=== PATIENT | female | born 1955 | race Caucasian/White ===

== ENCOUNTER 2019-03-26 10:26 | Inpatient (IN) ==
--- NOTE | 2019-03-26 10:33 | Emergency Department Note ---
Disposition Clinical Impression: Falls, Generalized weakness, Back pain Disposition: Admitted As Inpatient Condition: Fair General Adult HPI - General Stated complaint: Fall Time Seen by Provider: 03/26/19 10:29 - Related Data Home Medications Medication Instructions Recorded Confirmed Acyclovir [Zovirax] 400 mg PO BID 02/21/18 03/26/19 Buspirone HCl [Buspar] 20 mg PO BID 02/21/18 03/26/19 Docusate Sodium [Dok] 100 mg PO BID PRN 02/21/18 03/26/19 Omeprazole [PriLOSEC] 40 mg PO DAILY 02/21/18 03/26/19 Sertraline [Zoloft] 200 mg PO DAILY 02/21/18 03/26/19 Simvastatin [Zocor] 40 mg PO HS 02/21/18 03/26/19 Apixaban [Eliquis] 5 mg PO BID 08/28/18 03/26/19 Atenolol [Tenormin] 25 mg PO DAILY 02/01/19 03/26/19 Spironolactone [Aldactone] 25 mg PO QAM 02/01/19 03/26/19 Liraglutide [Victoza 2-Primo] 1.2 mg SQ DAILY 03/26/19 03/26/19 Lisinopril [Zestril] 5 mg PO DAILY 03/26/19 03/26/19 Melatonin 10 mg PO HS 03/26/19 03/26/19 Metformin HCl [Glucophage] 1,000 mg PO BIDWM 03/26/19 03/26/19 Timolol Maleate 1 drop BOTH EYES DAILY 03/26/19 03/26/19 Tizanidine HCl 2 mg PO TID PRN 03/26/19 03/26/19 Trospium Chloride 20 mg PO BID 03/26/19 03/26/19 Allergies Allergy/AdvReac Type Severity Reaction Status Date / Time bacitracin Allergy See Verified 03/26/19 14:28 [From Neosporin Comments ([id number])] Neomycin Allergy See Verified 03/26/19 14:28 [From Neosporin Comments ([id number])] polymyxin B Allergy See Verified 03/26/19 14:28 [From Neosporin Comments ([id number])] bandaid Allergy Rash Uncoded 08/28/18 10:07 Past Medical History - Past Medical History Medical history: Reports: arthritis, atrial fibrillation, DVT, diabetes, GERD, glaucoma, hyperlipidemia, hypertension, pulmonary embolus, other Surgical history: Reports: cataract, herniorrhaphy, other Psychiatric history: Reports: anxiety - Social History Smoking Status: Former smoker Smokeless Tobacco Status: No Alcohol use: Reports: none Drug use: Reports: none Course Vital Signs Temperature 98.4 F 03/26/19 10:37 Pulse Rate 74 03/26/19 10:37 Respiratory Rate 16 03/26/19 10:37 Blood Pressure 114/91 03/26/19 10:37 O2 Sat by Pulse Oximetry 98 03/26/19 10:37 Temperature 98.2 F 03/26/19 18:36 Pulse Rate 44 03/26/19 18:36 Respiratory Rate 15 03/26/19 18:36 Blood Pressure 119/73 03/26/19 18:36 O2 Sat by Pulse Oximetry 96 03/26/19 18:36 Oxygen Delivery Oxygen Delivery Room Air Medical Decision Making - Lab Data Result diagrams: 03/26/19 10:46 03/26/19 10:46 Lab Results 03/26/19 03/26/19 03/26/19 Range/Units 10:36 10:46 10:46 WBC 7.5 (4.3-11.1) K/mcL RBC 4.67 (3.82-4.97) M/mcL Hgb 14.2 (11.5-15.4) g/dL Hct 43.3 (35.3-44.9) % MCV 92.7 (83.0-100.0) fL MCH 30.4 (28.0-33.3) pg MCHC 32.8 (31.6-35.5) g/dL RDW 14.2 (11.5-14.5) % Plt Count 180 (140-400) K/mcL MPV 10.5 (9.4-12.4) fL Immature Gran % 0.7 (0-4) % Seg Neutrophils % 72.4 % Lymphocytes % 13.2 % Monocytes % 8.5 % Eosinophils % 4.3 % Basophils % 0.9 % Neutrophils # 5.4 (1.6-8.9) K/mcL Lymphocytes # 1.0 (0.6-4.6) K/mcL Monocytes # 0.6 (0.0-1.3) K/mcL Eosinophils # 0.3 (0.0-0.6) K/mcL Basophils # 0.1 (0.0-0.2) K/mcL PT 14.3 H (9.4-12.1) Seconds INR 1.3 APTT 35.1 (26.0-36.0) Seconds Sodium 139 (136-145) mEq/L Potassium 4.4 (3.5-5.1) mEq/L Chloride 100 (98-107) mEq/L Carbon Dioxide 31 H (23-29) mEq/L BUN 22 (8-23) mg/dL Creatinine 1.03 (0.60-1.20) mg/dL Est GFR ( Amer) > 60 (> 60) Est GFR (Non-Af Amer) 54 L (> 60) BUN/Creatinine Ratio 21 (6-26) Glucose 187 H (70-105) mg/dL Calculated Osmolality 296 (280-300) Calcium 10.3 (8.6-10.3) mg/dL Creatine Kinase 90 (30-223) Units/L Urine Color (Yellow) Urine Clarity (Clear) Urine pH (5.0-8.0) pH Units Ur Specific [place] (1.010-1.025) Urine Protein (Neg-Trace) mg/dL Urine Glucose (UA) (Normal) mg/dL Urine Ketones (Negative) mg/dL Urine Blood (Negative) Urine Nitrite (Negative) Urine Bilirubin (Negative) Urine Urobilinogen (Normal) mg/dL Ur Leukocyte Esterase (Negative) Ur Culture Indicated? (NO) 03/26/19 Range/Units 12:00 WBC (4.3-11.1) K/mcL RBC (3.82-4.97) M/mcL Hgb (11.5-15.4) g/dL Hct (35.3-44.9) % MCV (83.0-100.0) fL MCH (28.0-33.3) pg MCHC (31.6-35.5) g/dL RDW (11.5-14.5) % Plt Count (140-400) K/mcL MPV (9.4-12.4) fL Immature Gran % (0-4) % Seg Neutrophils % % Lymphocytes % % Monocytes % % Eosinophils % % Basophils % % Neutrophils # (1.6-8.9) K/mcL Lymphocytes # (0.6-4.6) K/mcL Monocytes # (0.0-1.3) K/mcL Eosinophils # (0.0-0.6) K/mcL Basophils # (0.0-0.2) K/mcL PT (9.4-12.1) Seconds INR APTT (26.0-36.0) Seconds Sodium (136-145) mEq/L Potassium (3.5-5.1) mEq/L Chloride (98-107) mEq/L Carbon Dioxide (23-29) mEq/L BUN (8-23) mg/dL Creatinine (0.60-1.20) mg/dL Est GFR ( Amer) (> 60) Est GFR (Non-Af Amer) (> 60) BUN/Creatinine Ratio (6-26) Glucose (70-105) mg/dL Calculated Osmolality (280-300) Calcium (8.6-10.3) mg/dL Creatine Kinase (30-223) Units/L Urine Color Yellow (Yellow) Urine Clarity Clear (Clear) Urine pH 6.5 (5.0-8.0) pH Units Ur Specific [place] 1.012 (1.010-1.025) Urine Protein Negative (Neg-Trace) mg/dL Urine Glucose (UA) Normal (Normal) mg/dL Urine Ketones Negative (Negative) mg/dL Urine Blood Negative (Negative) Urine Nitrite Negative (Negative) Urine Bilirubin Negative (Negative) Urine Urobilinogen Normal (Normal) mg/dL Ur Leukocyte Esterase Negative (Negative) Ur Culture Indicated? NO (NO) Attestation Statement - Attestation Attestation: I reviewed the residents documentation and agree with the residents assessment and plan of care. I have personally had face to face time with the patient. (Brief History, Brief Exam, and MDM) I personally supervised and was present for the ivy/critical portions of the following procedures completed by the resident: (add procedures performed here). [id number] time provided Patient arrives by EMS from home. She sustained a mechanical fall. She has experienced several recurrent falls over the past 2 days. It was reported by EMS that the patient's family requested placement to an extended care facility for rehabilitation. The patient appears in no acute distress on exam. She does have significant bilateral lower extremity lymphedematous changes to her feet and lower legs
[2019-03-26] MEDS ORDERED: *HR* FentaNYL (PF) 100 MCG/2 ML VIAL IVP ONE (10:37)
[2019-03-26] MEDS ORDERED: 0.9 % Sodium Chloride 500 ML IVC ONE (10:38)
--- NOTE | 2019-03-26 10:40 | Emergency Department Note ---
Disposition Clinical Impression: Generalized weakness Falls Qualifiers: Encounter type: initial encounter Qualified Code(s): W19.XXXA - Unspecified fall, initial encounter Back pain Qualifiers: Back pain location: low back pain Chronicity: unspecified Back pain laterality: unspecified Sciatica laterality: sciatica laterality unspecified Disposition: Admitted As Inpatient Condition: Fair Time of Disposition: 12:40 General Adult HPI - General Chief complaint: ED Weakness Stated complaint: Fall Time Seen by Provider: 03/26/19 10:29 Source: patient, EMS Mode of arrival: EMS Limitations: no limitations Nursing Notes Reviewed: Yes Vital Signs Reviewed: Yes - History of Present Illness HPI Narrative: 63-year-old female with a history of diabetes, hypertension, on Xarelto for bloo d clots present for evaluation of generalized weakness and recurrent falls. Patient was seen and evaluated yesterday. Patient states she has had multiple falls in the past 24 hours. Notes to have fallen 4 times. States she did hit her head last night with no LOC. States that her legs simply give out. Patient states that she has been on the ground for approximately 30 minutes and not able to get up on the falls. Denies any prodromal chest pain or shortness of breath. No abdominal pain. Patient's primarily complaining of low back pain as well as neck pain. Patient denies any difficulty breathing or fevers. Does live at home with the who has cancer. Families requesting to have the patient placed for rehabilitation - Related Data Home Medications Medication Instructions Recorded Confirmed Acyclovir [Zovirax] 400 mg PO BID 02/21/18 02/08/19 Buspirone HCl [Buspar] 20 mg PO BID 02/21/18 02/08/19 Cholecalciferol (Vitamin D3) 5,000 unit PO DAILY 02/21/18 02/08/19 [Vitamin D] Docusate Sodium [Dok] 100 mg PO BID PRN 02/21/18 02/08/19 Ibuprofen [Motrin] 600 mg PO BID PRN 02/21/18 02/08/19 Liraglutide [Victoza 3-Primo] 1.2 mg SQ DAILY 02/21/18 02/08/19 Lisinopril [Zestril] 10 mg PO DAILY 02/21/18 02/08/19 Melatonin [Melatin] 6 mg PO HS PRN 02/21/18 02/08/19 Omeprazole [PriLOSEC] 40 mg PO DAILY 02/21/18 02/08/19 Sertraline [Zoloft] 200 mg PO DAILY 02/21/18 02/08/19 Simvastatin [Zocor] 40 mg PO HS 02/21/18 02/08/19 Timolol Maleate 0.5% 1 drop OP DAILY 02/21/18 02/08/19 metFORMIN [Glucophage] 1,000 mg PO BIDWM 02/21/18 02/08/19 traZODone [TraZODone] 50 mg PO HS 02/21/18 02/08/19 Apixaban [Eliquis] 5 mg PO BID 08/28/18 02/08/19 Atenolol [Tenormin] 25 mg PO DAILY 02/01/19 02/08/19 Spironolactone [Aldactone] 25 mg PO DAILY 02/01/19 02/08/19 Allergies Allergy/AdvReac Type Severity Reaction Status Date / Time bacitracin Allergy See Verified 08/28/18 10:07 [From Neosporin Comments ([id number])] Neomycin Allergy See Verified 08/28/18 10:07 [From Neosporin Comments ([id number])] polymyxin B Allergy See Verified 08/28/18 10:07 [From Neosporin Comments ([id number])] bandaid Allergy Rash Uncoded 08/28/18 10:07 All systems ED: reviewed and negative except as stated. Constitutional: Denies: fever Cardiovascular: Denies: chest pain Respiratory: Denies: cough, dyspnea Gastrointestinal: Denies: abdominal pain, nausea, vomiting Past Medical History - Past Medical History Source: patient Medical history: Reports: arthritis, atrial fibrillation, DVT, diabetes, GERD, glaucoma, hyperlipidemia, hypertension, pulmonary embolus, other Surgical history: Reports: cataract, herniorrhaphy, other Psychiatric history: Reports: anxiety - Social History Smoking Status: Former smoker Smokeless Tobacco Status: No Alcohol use: Reports: none Drug use: Reports: none Physical Exam - General Limitations: no limitations General appearance: alert, in no apparent distress - Head Head exam: atraumatic, normocephalic, normal inspection - Eye Eye exam: Present: normal appearance, PERRL, EOMI - ENT ENT exam: normal exam - Neck Neck exam: Present: normal inspection - Chest Chest inspection: Present: normal inspection - Respiratory Respiratory exam: Present: normal lung sounds bilaterally. Absent: respiratory distress - Cardiovascular Cardiovascular exam: Present: regular rate, normal rhythm. Absent: normal heart sounds - Abdominal Exam Abdominal exam: Present: soft - Extremities Exam Extremities exam: Present: normal inspection, pedal edema (1+) - Back Exam Back exam: Present: normal inspection, tenderness (lower lumbar midline) - Neurological Exam Neurological exam: Present: alert, oriented X3, CN II-XII intact - Expanded Neurological Exam Patient oriented to: Present: person, place, time Speech: Present: fluid speech Cranial nerves: EOM function (II, III, IV, ): Normal, facial sensation (V): Normal, facial palsy (VII): Normal, spinal accessory function (XI): Normal, tongue deviation (XII): Normal Motor strength - LUE: 5/5 Motor strength - RUE: 5/5 Motor strength - LLE: 5/5 Motor strength - RLE: 5/5 Coma Scale Eye Opening: Spontaneous Coma Scale Motor Response: Obeys Commands Coma Scale Verbal Response: Oriented Coma Scale Total: 15 - Skin Skin exam: Present: warm, dry, intact, normal color Course Course Narrative: Patient's records reviewed. Patient was recently seen yesterday and had CT of the head and cervical spine as well as basic labs. Patient did have some mild [place] I. Patient will get repeat labs as well as repeat imaging given the history of the said fall on Xarelto. Patient also get imaging of her lumbar spine. Will see the social media content manager regarding appropriate therapy and planning. If the patient cannot be placed from the ED the patient will likely require admission for generalized weakness recurrent falls. - Reevaluation(s) Reevaluation #1: Patient seen and agrees with current plan of care. Time: 12:52 - Consultations Consultation #1: Social work did meet with the patient and patient will likely need admission for placement. Time: 10:54 Vital Signs Temperature 98.4 F 03/26/19 10:37 Pulse Rate 74 03/26/19 10:37 Respiratory Rate 16 03/26/19 10:37 Blood Pressure 114/91 03/26/19 10:37 O2 Sat by Pulse Oximetry 98 03/26/19 10:37 Temperature 98.4 F 03/26/19 10:41 Pulse Rate 80 03/26/19 11:44 Respiratory Rate 14 03/26/19 11:44 Blood Pressure 108/67 03/26/19 11:44 O2 Sat by Pulse Oximetry 95 03/26/19 11:44 Oxygen Delivery Oxygen Delivery Room Air Medical Decision Making - MDM Narrative Medical decision making narrative: Patient presents for evaluation of recurrent falls. Patient had imaging shows no acute fracture. Low suspicion or concerns for occult fracture. Patient is appropriate for admission PT OT and social discharge planning. electronic instrument trades worker did meet with the patient in the ED and recommends admission. - Lab Data Lab results reviewed: Yes I reviewed the patient's lab results. Result diagrams: 03/26/19 10:46 03/26/19 10:46 Lab Results 03/26/19 03/26/19 03/26/19 Range/Units 10:36 10:46 10:46 WBC 7.5 (4.3-11.1) K/mcL RBC 4.67 (3.82-4.97) M/mcL Hgb 14.2 (11.5-15.4) g/dL Hct 43.3 (35.3-44.9) % MCV 92.7 (83.0-100.0) fL MCH 30.4 (28.0-33.3) pg MCHC 32.8 (31.6-35.5) g/dL RDW 14.2 (11.5-14.5) % Plt Count 180 (140-400) K/mcL MPV 10.5 (9.4-12.4) fL Immature Gran % 0.7 (0-4) % Seg Neutrophils % 72.4 % Lymphocytes % 13.2 % Monocytes % 8.5 % Eosinophils % 4.3 % Basophils % 0.9 % Neutrophils # 5.4 (1.6-8.9) K/mcL Lymphocytes # 1.0 (0.6-4.6) K/mcL Monocytes # 0.6 (0.0-1.3) K/mcL Eosinophils # 0.3 (0.0-0.6) K/mcL Basophils # 0.1 (0.0-0.2) K/mcL PT 14.3 H (9.4-12.1) Seconds INR 1.3 APTT 35.1 (26.0-36.0) Seconds Sodium 139 (136-145) mEq/L Potassium 4.4 (3.5-5.1) mEq/L Chloride 100 (98-107) mEq/L Carbon Dioxide 31 H (23-29) mEq/L BUN 22 (8-23) mg/dL Creatinine 1.03 (0.60-1.20) mg/dL Est GFR ( Amer) > 60 (> 60) Est GFR (Non-Af Amer) 54 L (> 60) BUN/Creatinine Ratio 21 (6-26) Glucose 187 H (70-105) mg/dL Calculated Osmolality 296 (280-300) Calcium 10.3 (8.6-10.3) mg/dL Creatine Kinase 90 (30-223) Units/L Urine Color (Yellow) Urine Clarity (Clear) Urine pH (5.0-8.0) pH Units Ur Specific [place] (1.010-1.025) Urine Protein (Neg-Trace) mg/dL Urine Glucose (UA) (Normal) mg/dL Urine Ketones (Negative) mg/dL Urine Blood (Negative) Urine Nitrite (Negative) Urine Bilirubin (Negative) Urine Urobilinogen (Normal) mg/dL Ur Leukocyte Esterase (Negative) Ur Culture Indicated? (NO) 03/26/19 Range/Units 12:00 WBC (4.3-11.1) K/mcL RBC (3.82-4.97) M/mcL Hgb (11.5-15.4) g/dL Hct (35.3-44.9) % MCV (83.0-100.0) fL MCH (28.0-33.3) pg MCHC (31.6-35.5) g/dL RDW (11.5-14.5) % Plt Count (140-400) K/mcL MPV (9.4-12.4) fL Immature Gran % (0-4) % Seg Neutrophils % % Lymphocytes % % Monocytes % % Eosinophils % % Basophils % % Neutrophils # (1.6-8.9) K/mcL Lymphocytes # (0.6-4.6) K/mcL Monocytes # (0.0-1.3) K/mcL Eosinophils # (0.0-0.6) K/mcL Basophils # (0.0-0.2) K/mcL PT (9.4-12.1) Seconds INR APTT (26.0-36.0) Seconds Sodium (136-145) mEq/L Potassium (3.5-5.1) mEq/L Chloride (98-107) mEq/L Carbon Dioxide (23-29) mEq/L BUN (8-23) mg/dL Creatinine (0.60-1.20) mg/dL Est GFR ( Amer) (> 60) Est GFR (Non-Af Amer) (> 60) BUN/Creatinine Ratio (6-26) Glucose (70-105) mg/dL Calculated Osmolality (280-300) Calcium (8.6-10.3) mg/dL Creatine Kinase (30-223) Units/L Urine Color Yellow (Yellow) Urine Clarity Clear (Clear) Urine pH 6.5 (5.0-8.0) pH Units Ur Specific [place] 1.012 (1.010-1.025) Urine Protein Negative (Neg-Trace) mg/dL Urine Glucose (UA) Normal (Normal) mg/dL Urine Ketones Negative (Negative) mg/dL Urine Blood Negative (Negative) Urine Nitrite Negative (Negative) Urine Bilirubin Negative (Negative) Urine Urobilinogen Normal (Normal) mg/dL Ur Leukocyte Esterase Negative (Negative) Ur Culture Indicated? NO (NO) - Radiology Data Radiology results reviewed: Yes I reviewed the patient's radiology results. Chest X-Ray 03/26/19 10:36 IMPRESSION: No acute cardiopulmonary disease D/ / Junior Contreras MD / Junior Contreras MD Interpreting Provider: Junior Contreras MD Cervical Spine CT 03/26/19 10:37 IMPRESSION: 1. No acute fracture or subluxation of the cervical spine. 2. Mild multilevel cervical degenerative disc disease, as detailed above. D/ / 03/26/2019 11:43:34 Junior Doe MD / bcarter Interpreting Provider: Junior Doe MD Head CT 03/26/19 10:37 IMPRESSION: 1. No acute intracranial abnormality. 2. Mild chronic small vessel ischemic changes. D/ / Junior Contreras MD / Junior Contreras MD Interpreting Provider: Junior Contreras MD Lumbar Spine CT 03/26/19 10:37 IMPRESSION: 1. No acute findings in the lumbar spine. 2. Probably mild to moderate lumbar spine degenerative changes with severe involvement at L5/S1. 3. Severe right neural foraminal narrowing at L5/S1 with associated stenosis of the right lateral recess and mild to moderate spinal canal stenosis at that level. Consider MRI. 4. Increased size of a 5.8 cm exophytic cystic lesion arising from the the right kidney, containing what appears to be a thickened partial septation. Recommend further evaluation with renal protocol abdomen MRI (preferred) or CT on a nonemergent basis. D/ / Raoul Saucedo MD / Raoul Saucedo MD Interpreting Provider: Raoul Saucedo MD - EKG Data EKG #1 EKG attestation: Yes I reviewed and interpreted this EKG. EKG shows normal: sinus rhythm Rate: normal Rhythm: NSR [place]/QRS: normal T wave inversions noted in: v1 Interpretation: no acute changes, nonspecific ST-T wave changes S.B.ARosendoRRosendo - S.B.ATonie Situation: Demographics Background: Presenting Complaint Assessment: Vital Signs, Course and respsone to treatment, Patient/Family Expectation Recommendation: Barrier(s) to disposition, Recommendation based on pending studies, treatments, or consults S.B.A.RRosendo Report Given to: Hospitalist Felix Repor Time: 12:39
[2019-03-26 11:05] LABS: Basophils # 0.1 K/mcL (0.0-0.2); Basophils % 0.9 %; Eosinophils # 0.3 K/mcL (0.0-0.6); Eosinophils % 4.3 %; Hematocrit 43.3 % (35.3-44.9); Hemoglobin 14.2 g/dL (11.5-15.4); Immature Granulocytes % 0.7 % (0-4); Lymphocytes % 13.2 %; Mean Corpuscular HGB Conc 32.8 g/dL (31.6-35.5); Mean Corpuscular Hemoglobin 30.4 pg (28.0-33.3); Mean Corpuscular Volume 92.7 fL (83.0-100.0); Mean Platelet Volume 10.5 fL (9.4-12.4); Monocytes # 0.6 K/mcL (0.0-1.3); Monocytes % 8.5 %; Neutrophils # 5.4 K/mcL (1.6-8.9); Platelet Count 180 K/mcL (140-400); Red Blood Count 4.67 M/mcL (3.82-4.97); Red Cell Distribution Width 14.2 % (11.5-14.5); Segmented Neutrophils % 72.4 %
[2019-03-26 11:23] LABS: BUN/Creatinine Ratio 21 (6-26); Blood Urea Nitrogen 22 mg/dL (8-23); Calcium 10.3 mg/dL (8.6-10.3); Carbon Dioxide 31 mEq/L (23-29); Chloride 100 mEq/L (98-107); Creatine Kinase 90 Units/L (30-223); Glucose 187 mg/dL (70-105); Osmolality,Calculated 296 (280-300); Potassium 4.4 mEq/L (3.5-5.1); Sodium 139 mEq/L (136-145); eGFR For Non-African Americans 54 (> 60)
[2019-03-26 11:24] LABS: INR 1.3; Prothrombin Time 14.3 Seconds (9.4-12.1)
[2019-03-26 11:27] LABS: Activated Partial Thrombo Time 35.1 Seconds (26.0-36.0)
[2019-03-26 12:15] LABS: Bilirubin,Urine Negative (Negative); Blood,Urine Negative (Negative); Clarity,Urine Clear (Clear); Color,Urine Yellow (Yellow); Glucose,Urine (UA) Normal (Normal); Ketones,Urine Negative (Negative); Leukocyte Esterase,Urine Negative (Negative); Nitrite,Urine Negative (Negative); PH,Urine 6.5 pH Units (5.0-8.0); Protein,Urine Negative (Neg-Trace); Specific Gravity,Urine 1.012 (1.010-1.025); Urobilinogen,Urine Normal (Normal)
--- NOTE | 2019-03-26 14:57 | Internal Med History&Physical ---
Date of Encounter: 03/26/19 Time of Encounter: 14:57 Internal Medicine - H&P: HPI Chief complaint: Fall History of present illness: 63-year-old female with a history of MS, diabetes, hypertension, on Xarelto for history of Left lower extremity DVT in 1982 Pulmonary embolism in February 2018 who presented for evaluation of generalized weakness and recurrent falls during the last 24 hrs due to her legs giving out on her. The patient stated that she hit her head. The patient denies loss of conscious, chest pain, shortness of breath, dizziness or palpitation . No abdo esperanza pain. The patient is complaining of low back pain as well as neck pain. Imaging studies revealed no significant abnormalities, The patient was admitted for further evaluation and managnts requesting to have the patient placed for rehabilitation Past Med Surg Social Fam HX - Past Medical History Medical history: arthritis, atrial fibrillation, DVT, diabetes, GERD, glaucoma, hyperlipidemia, hypertension, pulmonary embolus, other Additional medical history: mult.sclerosis. sleep apnea with cpap. hx pulm emboli Psychiatric history: anxiety - Past Surgical History Surgical History: cataract, herniorrhaphy, other Additional surgical history: left saph ablation. 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 left knee scope - Social History Smoking Status: Former smoker Smokeless Tobacco Status: No Alcohol use: none Drug use: none - Family History Mother Living Status: Still Living Hx Family Respiratory Disorders: Yes (COPD) Father Living Status: Hx Family Cardiac Disorders: Yes (HTN, Heartache) Internal Medicine - H&P: Meds Acyclovir [Zovirax] 400 mg PO BID 02/21/18 [History] Buspirone HCl [Buspar] 20 mg PO BID 02/21/18 [History] Docusate Sodium [Dok] 100 mg PO BID PRN 02/21/18 [History] Omeprazole [PriLOSEC] 40 mg PO DAILY 02/21/18 [History] Sertraline [Zoloft] 200 mg PO DAILY 02/21/18 [History] Simvastatin [Zocor] 40 mg PO HS 02/21/18 [History] Apixaban [Eliquis] 5 mg PO BID 08/28/18 [History] Atenolol [Tenormin] 25 mg PO DAILY 02/01/19 [History] Spironolactone [Aldactone] 25 mg PO QAM 02/01/19 [History] Liraglutide [Victoza 2-Primo] 1.2 mg SQ DAILY 03/26/19 [History] Lisinopril [Zestril] 5 mg PO DAILY 03/26/19 [History] Melatonin 10 mg PO HS 03/26/19 [History] Metformin HCl [Glucophage] 1,000 mg PO BIDWM 03/26/19 [History] Timolol Maleate 1 drop BOTH EYES DAILY 03/26/19 [History] Tizanidine HCl 2 mg PO TID PRN 03/26/19 [History] Trospium Chloride 20 mg PO BID 03/26/19 [History] Allergy/AdvReac Type Severity Reaction Status Date / Time bacitracin Allergy See Verified 03/26/19 14:28 [From Neosporin Comments ([id number])] Neomycin Allergy See Verified 03/26/19 14:28 [From Neosporin Comments ([id number])] polymyxin B Allergy See Verified 03/26/19 14:28 [From Neosporin Comments ([id number])] bandaid Allergy Rash Uncoded 08/28/18 10:07 All Systems PM: A 10-system review of systems was performed and is negative for pertinent findings except as documented above in the HPI. - Constitutional Constitutional: malaise, weakness, no chills, no fever(s), no night sweats - EENT Eyes: no change in vision, no discharge, no pain, no photophobia Ears: no ear discharge, no ear pain, no tinnitus Nose, mouth and throat: no dysphagia, no nasal discharge, no neck pain, no sore throat - Cardiovascular Cardiovascular ROS IM: no chest pain, no diaphoresis, no dyspnea, no lightheadedness, no palpitations, no syncope - Respiratory Respiratory: no cough, no dyspnea, no wheezing, no excessive phlegm production - Gastrointestinal Gastrointestinal: no abdominal pain, no diarrhea, no hematemesis, no hematochezia, no melena, no nausea, no vomiting - Genitourinary Genitourinary: no change in urinary stream, no dysuria, no flank pain, no hematuria - Musculoskeletal Musculoskeletal ROS IM: back pain, muscle weakness, myalgias, no numbness, no tingling - Integumentary Integumentary IM: no rash, no unusual bruising - Neurological Neurological ROS: no confusion, no convulsions, no focal weakness, no numbness, no tingling, no tremor(s) - Hematologic/Lymphatic Hematologic/Lymphatic: no easy bruising - Constitutional Vitals: Temp Pulse Resp BP Pulse Ox 98.0 F 75 18 129/74 99 03/26/19 14:32 03/26/19 14:32 03/26/19 14:32 03/26/19 14:32 03/26/19 14:32 Exam: As below - Head Head exam: Present: atraumatic, normocephalic - Eye Eye exam: Present: PERRL, conjuntiva pink, sclera anicteric Pupils: Present: PERRL - Neck Neck exam general surgery: Present: supple, trachea midline. Absent: lymphadenopathy - Respiratory Respiratory exam: Present: CTAB. Absent: accessory muscle use, rales, rhonchi, wheezes - Cardiovascular Cardiovascular exam: Present: RRR, +S1, +S2. Absent: diastolic murmur, gallop, rubs, systolic murmur - GI/Abdominal GI/Abdominal exam: Present: normal bowel sounds, soft, no peritoneal signs. Absent: distended, tenderness - Extremities Exam Extremities exam: Present: warm, radial pulses palpable and symmetrical. Absent: calf tenderness, cyanotic, pedal edema - Neurological Exam Neurological exam: Present: CN II-XII intact, oriented X3, no focal deficits. Absent: pronater drift, facial droop, speech deficit - Skin Skin exam: Present: dry, intact Internal Med - H&P Results - Labs CBC & Chem 7: 03/30/19 04:55 03/30/19 04:55 Labs: Short CBC 03/26/19 Range/Units 10:46 WBC 7.5 (4.3-11.1) K/mcL Hgb 14.2 (11.5-15.4) g/dL Hct 43.3 (35.3-44.9) % Plt Count 180 (140-400) K/mcL Neutrophils # 5.4 (1.6-8.9) K/mcL BMP 03/26/19 10:46 Sodium 139 Potassium 4.4 Chloride 100 Carbon Dioxide 31 H BUN 22 Creatinine 1.03 Glucose 187 H Calcium 10.3 Urine 03/26/19 Range/Units 12:00 Urine Color Yellow (Yellow) Urine Clarity Clear (Clear) Urine pH 6.5 (5.0-8.0) pH Units Ur Specific [place] 1.012 (1.010-1.025) Urine Protein Negative (Neg-Trace) mg/dL Urine Glucose (UA) Normal (Normal) mg/dL - Impressions ITS Impressions Chest X-Ray 03/26/19 10:36 IMPRESSION: No acute cardiopulmonary disease D/ / Junior Contreras MD / Junior Contreras MD Interpreting Provider: Junior Contreras MD Cervical Spine CT 03/26/19 10:37 IMPRESSION: 1. No acute fracture or subluxation of the cervical spine. 2. Mild multilevel cervical degenerative disc disease, as detailed above. D/ / 03/26/2019 11:43:34 Junior Doe MD / [facility] Interpreting Provider: Junior Doe MD Head CT 03/26/19 10:37 IMPRESSION: 1. No acute intracranial abnormality. 2. Mild chronic small vessel ischemic changes. D/ / Junior Contreras MD / Junior Contreras MD Interpreting Provider: Junior Contreras MD Lumbar Spine CT 03/26/19 10:37 IMPRESSION: 1. No acute findings in the lumbar spine. 2. Probably mild to moderate lumbar spine degenerative changes with severe involvement at L5/S1. 3. Severe right neural foraminal narrowing at L5/S1 with associated stenosis of the right lateral recess and mild to moderate spinal canal stenosis at that level. Consider MRI. 4. Increased size of a 5.8 cm exophytic cystic lesion arising from the the right kidney, containing what appears to be a thickened partial septation. Recommend further evaluation with renal protocol abdomen MRI (preferred) or CT on a nonemergent basis. D/ / Raoul Saucedo MD / Raoul Saucedo MD Interpreting Provider: Raoul Saucedo MD - Assessment and Plan (1) Falls Current Visit: Yes Status: Acute Assessment and plan: The patient is requesting placement to rehab. The patient has history of Multiple sclerosis. We will consult neuro, PT and OT Qualifiers: Encounter type: subsequent encounter Qualified Code(s): W19.XXXD - Unspecified fall, subsequent encounter (2) Hypertension Current Visit: Yes Status: Acute Assessment and plan: We will cont home meds Qualifiers: Hypertension type: essential hypertension Qualified Code(s): I10 - Essent ial (primary) hypertension (3) Diabetes Current Visit: Yes Status: Acute Assessment and plan: We will cont home meds and start insulin slifding scale with coverage Qualifiers: Diabetes mellitus type: type 2 Diabetes mellitus nursing home insulin use: without technician terminal and repeater use Diabetes mellitus complication status: without co mplication Qualified Code(s): E11.9 - Type 2 diabetes mellitus without co mplications (4) Hyperlipidemia Current Visit: Yes Status: Acute Assessment and plan: We will cont home statin Qualifiers: Hyperlipidemia type: unspecified Qualified Code(s): E78.5 - Hyperlipidemia, unspecified (5) History of deep vein thrombosis (DVT) of lower extremity Current Visit: Yes Status: Acute Assessment and plan: The patient had history of DVT and PE, will cont. anticoagulation with Xarelto - Time Spent With Patient Total time spent is greater than 50% in coordination of care (as documented) at patient's floor/unit and/or counseling patient:
[2019-03-26] MEDS ORDERED: *HR* Metformin 500 MG TABLET PO SCH (17:00)
[2019-03-26] MEDS ORDERED: Naloxone 0.4 MG/ML INJ IVP PRN (17:11)
[2019-03-26] MEDS ORDERED: Acetaminophen 325 MG TABLET PO PRN (17:11)
[2019-03-26] MEDS: 0.9 % Sodium Chloride 1,000 ML IVC SCH (18:16)
[2019-03-26] MEDS ORDERED: *HR* Dextrose 50 % in Water (Syg) 50 ML SYRINGE IVP PRN (18:52)
[2019-03-26] MEDS ORDERED: D5% in Water 1,000 ML IVC PRN (18:52)
[2019-03-26] MEDS ORDERED: Dextrose Gel 15 GM/37.5 ML TUBE PO PRN ×2 (18:52)
[2019-03-26] MEDS: Acyclovir 200 MG CAPSULE PO SCH (19:42)
[2019-03-26] MEDS: Apixaban 5 MG TABLET PO SCH (19:42)
[2019-03-26] MEDS: BUSPIRONE HCL 10 MG TABLET PO SCH (19:43)
[2019-03-26] MEDS: Melatonin 3 MG TABLET PO SCH (19:43)
[2019-03-26 20:08] LABS: Estimated Average Glucose 143 mg/dl; Hemoglobin A1C 6.6 %
[2019-03-26] MEDS: Insulin LISPRO 300 UNITS/3 ML VIAL SQ SCH (22:55)
[2019-03-27 03:48] LABS: Basophils # 0.1 K/mcL (0.0-0.2); Basophils % 1.1 %; Eosinophils # 0.3 K/mcL (0.0-0.6); Eosinophils % 3.9 %; Hematocrit 38.2 % (35.3-44.9); Hemoglobin 12.7 g/dL (11.5-15.4); Immature Granulocytes % 0.4 % (0-4); Lymphocytes # 1.8 K/mcL (0.6-4.6); Lymphocytes % 22.2 %; Mean Corpuscular HGB Conc 33.2 g/dL (31.6-35.5); Mean Corpuscular Hemoglobin 30.7 pg (28.0-33.3); Mean Corpuscular Volume 92.3 fL (83.0-100.0); Mean Platelet Volume 10.7 fL (9.4-12.4); Monocytes # 0.7 K/mcL (0.0-1.3); Monocytes % 8.7 %; Neutrophils # 5.1 K/mcL (1.6-8.9); Platelet Count 165 K/mcL (140-400); Red Blood Count 4.14 M/mcL (3.82-4.97); Red Cell Distribution Width 14.3 % (11.5-14.5); Segmented Neutrophils % 63.7 %
[2019-03-27 03:58] LABS: INR 1.4; Prothrombin Time 15.9 Seconds (9.4-12.1)
[2019-03-27 04:01] LABS: Activated Partial Thrombo Time 35.5 Seconds (26.0-36.0)
[2019-03-27 04:05] LABS: Alanine Aminotransferase 22 Units/L (7-52); Albumin 3.8 g/dL (3.5-5.7); Albumin/Globulin Ratio 1.5 (1.1-2.2); Alkaline Phosphatase 52 Units/L (34-104); Aspartate Amino Transferase 19 Units/L (13-39); BUN/Creatinine Ratio 18 (6-26); Bilirubin,Total 0.6 mg/dL (0.3-1.0); Blood Urea Nitrogen 19 mg/dL (8-23); Calcium 9.4 mg/dL (8.6-10.3); Carbon Dioxide 25 mEq/L (23-29); Chloride 105 mEq/L (98-107); Chol/HDL Ratio 3.6 (0-4.9); Cholesterol 150 mg/dL (< 200); Globulin 2.5 g/dL (2.4-3.5); Glucose 151 mg/dL (70-105); HDL Cholesterol 42 mg/dL (40-59); LDL Cholesterol,Calculated 77 mg/dL (0-99); Magnesium 1.4 mg/dL (1.6-2.6); Osmolality,Calculated 293 (280-300); Phosphorous 3.7 mg/dL (2.7-4.5); Potassium 4.2 mEq/L (3.5-5.1); Sodium 139 mEq/L (136-145); Total Protein 6.3 g/dL (6.4-8.9); Triglycerides 157 mg/dL (< 150); eGFR For Non-African Americans 52 (> 60)
[2019-03-27] MEDS: 0.9 % Sodium Chloride 1,000 ML IVC SCH (04:46)
[2019-03-27] MEDS: traMADol 50 MG TABLET PO PRN ×2 (06:06→17:34)
--- NOTE | 2019-03-27 07:32 | Internal Med Progress Note ---
Hospitalist Progress Note - Encounter Date of Encounter: 03/27/19 Time of Encounter: 07:32 - Exam Vitals: Temp Pulse Resp BP Pulse Ox 98.2 F 91 17 106/56 96 03/27/19 03:57 03/27/19 03:57 03/27/19 03:57 03/27/19 03:57 03/27/19 03:57 Exam: Skin: Free of rash and discoloration. Eyes: Sclera is white. There is no discharge from eyes. ENMT: Oral/pharyngeal mucosa is normal in appearance. There is no discharge from nose or ears. Respiratory: Normal breath sounds with no crackles and wheezes bilaterally. CV: Heart is regular with no gallop or murmur. GI: Abdomen is flat and soft with no palpable mass or visceromegaly. : There is no tenderness in patient's flanks bilaterally. Neuro exam: upper strength equal lower extremity weakness He has normal eye movements. Psychiatric: He has normal affect. His thought process is appropriate to the situation. - Assessment and Plan (1) Falls Current Visit: Yes Status: Acute Assessment and Plan: The patient is requesting placement to rehab. The patient has history of Multiple sclerosis. We will consult neuro, PT and OT CT of lumbar spine does show Severe right neural foraminal narrowing at L5/S1 with associated stenosis of the right lateral recess and mild to moderate spinal canal stenosis at that leve consider MRI (2) Generalized weakness Current Visit: Yes Status: Acute Assessment and Plan: The patient has history of MS, neurology was consulted (3) Hypertension Current Visit: Yes Status: Acute Assessment and Plan: We will cont home meds (4) Diabetes Current Visit: Yes Status: Acute Assessment and Plan: Accu-Cheks before meals at bedtime start insulin slifding scale with coverage hold oral medications for now resume on discharge (5) Hyperlipidemia Current Visit: Yes Status: Acute Assessment and Plan: We will cont home statin (6) History of deep vein thrombosis (DVT) of lower extremity Current Visit: Yes Status: Acute Assessment and Plan: The patient had history of DVT and PE, will cont. anticoagulation with Xarelto - Time Spent with Patient Total time spent is greater than 50% in coordination of care (as documented) at patient's floor/unit and/or counseling patient: Internal Medicine: Result - Labs CBC & Chem 7: 03/27/19 03:27 03/27/19 03:27 Labs: Short CBC 03/26/19 03/27/19 Range/Units 10:46 03:27 WBC 7.5 8.0 (4.3-11.1) K/mcL Hgb 14.2 12.7 D (11.5-15.4) g/dL Hct 43.3 38.2 (35.3-44.9) % Plt Count 180 165 (140-400) K/mcL Neutrophils # 5.4 5.1 (1.6-8.9) K/mcL BMP 03/26/19 03/27/19 10:46 03:27 Sodium 139 139 Potassium 4.4 4.2 Chloride 100 105 Carbon Dioxide 31 H 25 BUN 22 19 Creatinine 1.03 1.07 Glucose 187 H 151 H Calcium 10.3 9.4 Liver Function 03/27/19 Range/Units 03:27 Total Bilirubin 0.6 (0.3-1.0) mg/dL AST 19 (13-39) Units/L ALT 22 (7-52) Units/L Alkaline Phosphatase 52 (34-104) Units/L Albumin 3.8 (3.5-5.7) g/dL Urine 03/26/19 Range/Units 12:00 Urine Color Yellow (Yellow) Urine Clarity Clear (Clear) Urine pH 6.5 (5.0-8.0) pH Units Ur Specific [place] 1.012 (1.010-1.025) Urine Protein Negative (Neg-Trace) mg/dL Urine Glucose (UA) Normal (Normal) mg/dL - ABG Interpretation ABG results: PT/INR, D-dimer PT 15.9 Seconds (9.4-12.1) H 03/27/19 03:27 - Impressions Impressions Chest X-Ray 03/26/19 10:36 IMPRESSION: No acute cardiopulmonary disease D/ / Junior Contreras MD / Junior Contreras MD Interpreting Provider: Junior Contreras MD Cervical Spine CT 03/26/19 10:37 IMPRESSION: 1. No acute fracture or subluxation of the cervical spine. 2. Mild multilevel cervical degenerative disc disease, as detailed above. D/ / 03/26/2019 11:43:34 [facility] Doe MD / [facility] Interpreting Provider: Junior Doe MD Head CT 03/26/19 10:37 IMPRESSION: 1. No acute intracranial abnormality. 2. Mild chronic small vessel ischemic changes. D/ / Junior Contreras MD / Junior Contreras MD Interpreting Provider: Junior Contreras MD Lumbar Spine CT 03/26/19 10:37 IMPRESSION: 1. No acute findings in the lumbar spine. 2. Probably mild to moderate lumbar spine degenerative changes with severe involvement at L5/S1. 3. Severe right neural foraminal narrowing at L5/S1 with associated stenosis of the right lateral recess and mild to moderate spinal canal stenosis at that level. Consider MRI. 4. Increased size of a 5.8 cm exophytic cystic lesion arising from the the right kidney, containing what appears to be a thickened partial septation. Recommend further evaluation with renal protocol abdomen MRI (preferred) or CT on a nonemergent basis. D/ / Raoul Saucedo MD / Raoul Saucedo MD Interpreting Provider: Raoul Saucedo MD Consult Discharge Plan - Plan Referrals: Alena Britt, BLEACHER OPERATOR [Primary Care Provider] - (1) Falls Qualifiers: Encounter type: initial encounter Qualified Code(s): W19.XXXA - Unspecified fall, initial encounter (4) Diabetes Qualifiers: Diabetes mellitus type: type 2 Diabetes mellitus long-term insulin use: without dedicated intermodal truck driver use Diabetes mellitus complication status: without com plication Qualified Code(s): E11.9 - Type 2 diabetes mellitus without comp lications (5) Hyperlipidemia Qualifiers: Hyperlipidemia type: unspecified Qualified Code(s): E78.5 - Hyperlipidemia, unspecified
[2019-03-27] MEDS: Acyclovir 200 MG CAPSULE PO SCH ×2 (09:05→20:01)
[2019-03-27] MEDS: Insulin LISPRO 300 UNITS/3 ML VIAL SQ SCH ×4 (09:06→22:27)
[2019-03-27] MEDS: Spironolactone 25 MG TABLET PO SCH (09:06)
[2019-03-27] MEDS: BUSPIRONE HCL 10 MG TABLET PO SCH ×2 (09:06→20:02)
[2019-03-27] MEDS: Apixaban 5 MG TABLET PO SCH ×2 (09:07→20:02)
[2019-03-27] MEDS: (Liraglutide [Victoza 2-Pak] 1.2 MG) SQ SCH (09:07)
[2019-03-27] MEDS: tiZANidine 4 MG TABLET PO PRN (09:11)
--- NOTE | 2019-03-27 12:21 | Neurology - Consult Note ---
Date of Encounter: 03/27/19 Time of Encounter: 11:17 Assessment and Plan (1) History of multiple sclerosis Current Visit: Yes Status: Acute This patient who apparently had a history of multiple sclerosis since 1993, with questionable flareup about 2 years ago when she was admitted at [facility] and had been treated with IV steroids now admitted with generalized weakness fatigue as well as frequent falls and difficulty with a gait and balance that she been having it for some time.. Concerning her symptoms history and exam findings on balance problem seemed to be multifactorial certainly MS could be playing a significant role but at the same time she did have a significant degenerative changes and stenosis in her lumbar spine along with neuropathy from her diabetes is likely all contributing to these frequent falls and losing balance she also has significant swelling and decreased fine movement in the lower extremities certainly can make it difficult to keep up the balance. At this time we do not know the extent of her MS especially when she did not have any recent imaging studies in fact he do not even know what kind of MS she had an in fact how confirmed is this diagnosis is. Regardless suggest getting an MRI of the brain with and without contrast along with MRI of the cervical spine to look for any demyelinating lesion if there is some demyelination perhaps she may need MRI of the thoracic spine later as well. At the same time she would also need MRI lumbar spine as recommended by radiology due to significant stenosis in the L5-S1 area. In the meantime suggest to continue on current treatment options further recommendation will depend on the result of MRI of the brain cervical spine as well as lumbar spine. As if there is any active lesions she probably need IV steroids. She would likely benefit from short-term rehabilitation as she remain at high risk for the fall (2) Falls Current Visit: Yes Status: Acute Qualifiers: Encounter type: initial encounter Qualified Code(s): W19.XXXA - Unspecified fall, initial encounter (3) Generalized weakness Current Visit: Yes Status: Acute History of Present Illness HPI: Ms. Ayoub is a 63 year old female with history of MS,( diagnosed in 1993, not following with neuro, not on any immune modulating meds) as well as with diabetes, hypertension, on Xarelto for history of Left lower extremity DVT in 1982, Pulmonary embolism in February 2018 who admitted with Generalized weakness and recurrent falls during the last 24 hrs due to her legs giving out on her. The patient stated that she hit her head. The patient denies loss of conscious, chest pain, shortness of breath, dizziness or palpitation . No abdominal pain. The patient is complaining of low back pain as well as neck pain. Imaging studies revealed no significant abnormalities, The patient was admitted for further evaluation. According to the patient she is been feeling weak all over and also in the lower extremities recently and she is been losing balance because unable to keep up her weight as her legs give out. She denies much back pain with complaining of weakness more on the left than on the right side is also have numbness and paresthesias in both lower extremities a history of diabetes and neuropathy. Patient is a complicated past medical history and is a very poor historian apparently she was diagnosed with MS in 1993 in [facility] at that time she was started on Avonex injection but as they were making her sick she stopped taking it and not been on any immune modulating medication for more than 12 years, according to the patient she has not followed with any neurologist and not been on any other medication but about 1 or 2 years ago she has weakness in the legs and at that time she was admitted at [facility] and was found to have some spots in her spine, and has received IV steroids for MS flareup, after that she was in the rehabilitation for a while but is still did not had any follow-up appointment with [facility] neurologist or any other neurologist. She is not able to give much detail about her diagnosis and the symptoms she had overall according to her she is been stable despite being on any medication for MS Past Med Surg Social Fam HX - Past Medical History Medical history: arthritis, atrial fibrillation, DVT, diabetes, GERD, glaucoma, hyperlipidemia, hypertension, pulmonary embolus, other Additional medical history: mult.sclerosis. sleep apnea with cpap. hx pulm emboli Psychiatric history: anxiety - Past Surgical History Surgical History: cataract, herniorrhaphy, other Additional surgical history: left saph ablation. 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 left knee scope - Social History Smoking Status: Former smoker Smokeless Tobacco Status: No Alcohol use: none Drug use: none - Family History Mother Living Status: Still Living Hx Family Respiratory Disorders: Yes (COPD) Father Living Status: Hx Family Cardiac Disorders: Yes (HTN, Heartache) Medications and Allergies Acyclovir [Zovirax] 400 mg PO BID 02/21/18 [History] Buspirone HCl [Buspar] 20 mg PO BID 02/21/18 [History] Docusate Sodium [Dok] 100 mg PO BID PRN 02/21/18 [History] Omeprazole [PriLOSEC] 40 mg PO DAILY 02/21/18 [History] Sertraline [Zoloft] 200 mg PO DAILY 02/21/18 [History] Simvastatin [Zocor] 40 mg PO HS 02/21/18 [History] Apixaban [Eliquis] 5 mg PO BID 08/28/18 [History] Atenolol [Tenormin] 25 mg PO DAILY 02/01/19 [History] Spironolactone [Aldactone] 25 mg PO QAM 02/01/19 [History] Liraglutide [Victoza 2-Primo] 1.2 mg SQ DAILY 03/26/19 [History] Lisinopril [Zestril] 5 mg PO DAILY 03/26/19 [History] Melatonin 10 mg PO HS 03/26/19 [History] Metformin HCl [Glucophage] 1,000 mg PO BIDWM 03/26/19 [History] Timolol Maleate 1 drop BOTH EYES DAILY 03/26/19 [History] Tizanidine HCl 2 mg PO TID PRN 03/26/19 [History] Trospium Chloride 20 mg PO BID 03/26/19 [History] Allergy/AdvReac Type Severity Reaction Status Date / Time bacitracin Allergy See Verified 03/26/19 14:28 [From Neosporin Comments ([id number])] Neomycin Allergy See Verified 03/26/19 14:28 [From Neosporin Comments ([id number])] polymyxin B Allergy See Verified 03/26/19 14:28 [From Neosporin Comments ([id number])] bandaid Allergy Rash Uncoded 08/28/18 10:07 All Systems: The remainder of the systems were reviewed and are negative Physical Examination - Vital Signs Vital Signs: Initial Vital Signs Temp Pulse Resp BP Pulse Ox 98.4 F 74 16 114/91 98 03/26/19 10:37 03/26/19 10:37 03/26/19 10:37 03/26/19 10:37 03/26/19 10:37 - Exam Exam: GENERAL: Comfortable in no acute distress HEENT: Normal LUNGS: CTA HEART: RRR, S1 S2 Audible, no murmur EXTREMITIES: No Pedal edema. DETAILED NEUROLOGICAL EXAMINATION: MENTAL STATUS: Oriented to person, place, date and situation. Memory: knows the President, Aware of recent events Recent Memory Intact, Attention span is normal Cranial Nerve Examination: CN - II: Visual Acuity, Field of Vision Normal, Fundus examination: No disk edema, Pupils- size shape reaction to light and accommodation: All normal. CN III, IV, : External ocular movements were intact, Pupils were reactive, Nodrooping of the eyelids CN V: Sensation over the face to light touch and pinprick all normal. Corneal reflexes not tested, jaw jerk normal. CN VII: No facial asymmetry, no flattening of nasolabial folds, no difficulty in closing the eyes, no loss of forehead wrinkles, no difficulty in eye-closure, frowning raising eyebrows. CNVIII: No significant hearing loss CN IX, X: Uvula centralized not deviated, Gag reflex: Not tested CN X1: Sternocleidomastoid, trapezius, normal or evidence of any weakness. CN X11: No Dysarthria, no wasting or fibrilation f tongue muscles, no deviation, tongue muscle strength normal. Motor examination: No hypertrophy, tone was normal, power grade 0-5 Upper limbs Proximal- No difficulty in lifting the arms above the head. Distal- No weakness in distal muscles On formal testing 4/4 all over Lower limbs On formal testing 3/3+ all over Coordination: [id number] normal. Target pursuit normal finger tapping normal, Rapid alternating moment of wrist normal Sensory system: Superficial sensations- Touch normal. Pain- Pinprick, Temperature decrease Deep sensation normal, Joint position sense normal. Cortical sensation, Tactile discrimination, localization and extinction all normal. Deep tendon reflexes. Symmetrical bilateral, No evidence of Babinski. No sign of meningeal irritation Gait Examination: Deferred - Constitutional General appearance: comfortable - Neurologic Sensorimotor examination: intact Results - Laboratory Findings CBC and BMP: 03/27/19 03:27 03/27/19 03:27 Abnormal lab findings: Abnormal lab results PT 15.9 Seconds (9.4-12.1) H 03/27/19 03:27 Carbon Dioxide 31 mEq/L (23-29) H 03/26/19 10:46 Est GFR (Non-Af Amer) 52 (> 60) L 03/27/19 03:27 Glucose 151 mg/dL (70-105) H 03/27/19 03:27 POC Glucose 156 mg/dL (70-99) H 03/26/19 14:37 6.6 % (-5.6) H 03/26/19 10:46 Magnesium 1.4 mg/dL (1.6-2.6) L 03/27/19 03:27 6.3 g/dL (6.4-8.9) L 03/27/19 03:27 Triglycerides 157 mg/dL (< 150) H 03/27/19 03:27 VLDL Cholesterol, Calc 31 mg/dL (< 31) H 03/27/19 03:27 - Diagnostic Findings Additional findings: CT scan of the head cervical spine and lumbar spine did not show any acute abnormality but significant degenerative changes noted in CT of the lumbar spine and MRI was recommended Consult Discharge Plan - Plan Referrals: Alena Britt DYNAMITER [Primary Care Provider] -
[2019-03-27] MEDS ORDERED: Gadolinium Contrast Agent (WT Based) IV PRN (12:28)
[2019-03-27] MEDS ORDERED: *HR* LORazepam 2 MG/ML VIAL IVP ONE (14:23)
[2019-03-27 15:44] LABS: Folate 13.2 ng/mL (3.0-16.0)
--- NOTE | 2019-03-27 19:29 | Electrocardiograph Report ---
Danese Netechy Test Date: 2019-03-26 Pat Name: Priti Ayoub Department: EXAM2 Room: 3B21 Gender: F [employer] Mechanic: : 1955 Requested By: Dejon Epstein Order Number: [id number] Reading MD: Jamie Shannon Measurements Intervals [place] Rate: 76 P: 55 [place]: 170 QRS: 7 QRSD: 153 T: 44 QT: 378 QTc: 425 Interpretive Statements Sinus rhythm Nonspecific intraventricular conduction delay Electronically Signed On 03-27-2019 19:27:48 EDT by Jamie Shannon
[2019-03-27] MEDS: Melatonin 3 MG TABLET PO SCH (20:01)
[2019-03-28] MEDS: Spironolactone 25 MG TABLET PO SCH (08:16)
[2019-03-28] MEDS: Apixaban 5 MG TABLET PO SCH ×2 (08:17→21:21)
[2019-03-28] MEDS: Acyclovir 200 MG CAPSULE PO SCH ×2 (08:17→21:21)
[2019-03-28] MEDS: Insulin LISPRO 300 UNITS/3 ML VIAL SQ SCH ×4 (08:17→21:21)
[2019-03-28] MEDS: BUSPIRONE HCL 10 MG TABLET PO SCH ×2 (08:17→21:21)
[2019-03-28] MEDS: (Liraglutide [Victoza 2-Pak] 1.2 MG) SQ SCH (08:36)
[2019-03-28] MEDS ORDERED: Isovue-370 500 ML BOTTLE IVP ONE (10:26)
--- NOTE | 2019-03-28 10:31 | Internal Med Progress Note ---
Hospitalist Progress Note - Encounter Date of Encounter: 03/28/19 Time of Encounter: 10:29 - Subjective Interval History: Seen and examined at bedside. Patient is new to me, information obtained from chart review and patient report. Lying in bed, appears comfortable. Overall says she does not feel like she is significantly improved from arrival. Still with generalized weakness and fatigue. Says she has not been up ambulating but chair yesterday. She is hoping to be discharged to [facility] for further therapy. - Exam Vitals: Temp Pulse Resp BP Pulse Ox 98 F 76 17 117/64 92 03/28/19 07:31 03/28/19 07:31 03/28/19 07:31 03/28/19 07:31 03/28/19 07:31 Exam: General appearance: Present: A&O X 3, pleasant, no acute distress - Head Head exam: Present: atraumatic, normocephalic - Eye Eye exam: Present: PERRL, conjuntiva pink, sclera anicteric Pupils: Present: PERRL - Neck Neck exam general surgery: Present: supple, trachea midline. Absent: lymphadenopathy - Respiratory Respiratory exam: Present: chest wall tenderness, CTAB. Absent: accessory muscle use, rales, rhonchi, wheezes - Cardiovascular Cardiovascular exam: Present: RRR, +S1, +S2. Absent: diastolic murmur, gallop, rubs, systolic murmur - GI/Abdominal GI/Abdominal exam: Present: normal bowel sounds, soft, no peritoneal signs. Absent: distended, tenderness - Extremities Exam Extremities exam: Present: warm, radial pulses palpable and symmetrical. + Nonpitting lower extremity pedal edema Absent: calf tenderness, cyanotic - Neurological Exam Neurological exam: Present: CN II-XII intact, oriented X3, no focal deficits. Absent: pronater drift, facial droop, speech deficit - Skin Skin exam: Present: dry, intact - Assessment and Plan (1) Falls Current Visit: Yes Status: Acute Assessment and Plan: hx MS (diagnosed 1993 and does not follow with neurology). Presented with increasing falls, lower extremity weakness and difficulty ambulating. Head CT nonacute. L-spine CT with significant degenerative changes and stenosis. Lumbar MRI showed grade 1 anterolisthesis of L5 on S1 and moderate to severe narrowing of the right neural foramen with no significant nerve root compression. Evaluated by neurology who suspected multifactorial with severe degenerative changes and stenosis to lumbar spine, neuropathy from diabetes and possible MS. Await further recommendations from neurology. PT/OT consult. Patient would like to be discharged to [facility] if possible. (2) Hypertension Current Visit: Yes Status: Acute Assessment and Plan: per hx. BP soft/borderline at times. Continue home BP medication. Monitor BP and titrate PRN (3) Multiple sclerosis Current Visit: Yes Status: Acute Assessment and Plan: per patient reported history. Unable to verify. Brain MRI without demyelinating lesions. Plan as noted above. Neurology following (4) Renal mass Current Visit: Yes Status: Acute Assessment and Plan: Lumbar spine MRI showed possible right kidney mass and thickening of bladder. Abdomen/pelvis CT pending. (5) Diabetes Current Visit: Yes Status: Acute Assessment and Plan: per hx. holding home oral hypoglycemics. SSI. Monitor blood sugar and titrate PRN (6) Hyperlipidemia Current Visit: Yes Status: Acute Assessment and Plan: per hx. Cont home statin (7) History of deep vein thrombosis (DVT) of lower extremity Current Visit: Yes Status: Acute Assessment and Plan: hx DVT and pulmonary embolism. Cont home eliquis (8) DVT prophylaxis Current Visit: Yes Status: Acute Assessment and Plan: eliquis - Time Spent with Patient Total time spent is greater than 50% in coordination of care (as documented) at patient's floor/unit and/or counseling patient: Internal Medicine: Result - Labs CBC & Chem 7: 03/27/19 03:27 03/27/19 03:27 - ABG Interpretation ABG results: PT/INR, D-dimer PT 15.9 Seconds (9.4-12.1) H 03/27/19 03:27 - Impressions Impressions Cervical Spine CT 03/26/19 10:37 IMPRESSION: 1. No acute fracture or subluxation of the cervical spine. 2. Mild multilevel cervical degenerative disc disease, as detailed above. D/ / 03/26/2019 11:43:34 Junior Doe MD / [facility] Interpreting Provider: Junior Doe MD Cervical Spine MRI 03/27/19 12:28 IMPRESSION: No acute intracranial abnormality identified. No cervical cord abnormality detected. Degenerative changes of the C-and L-spine as detailed above. Possible cystic mass arising from the right kidney and thickening of the bladder dome. Consider dedicated CT of the abdomen and pelvis for further evaluation. D/ / Fredo Robb MD / Fredo Robb MD Interpreting Provider: Fredo Robb MD Head MRI 03/27/19 12:28 IMPRESSION: No acute intracranial abnormality identified. No cervical cord abnormality detected. Degenerative changes of the C-and L-spine as detailed above. Possible cystic mass arising from the right kidney and thickening of the bladder dome. Consider dedicated CT of the abdomen and pelvis for further evaluation. D/ / Fredo Robb MD / Fredo Robb MD Interpreting Provider: Fredo Robb MD Lumbar Spine MRI 03/27/19 12:28 IMPRESSION: No acute intracranial abnormality identified. No cervical cord abnormality detected. Degenerative changes of the C-and L-spine as detailed above. Possible cystic mass arising from the right kidney and thickening of the bladder dome. Consider dedicated CT of the abdomen and pelvis for further evaluation. D/ / Fredo Robb MD / Fredo Robb MD Interpreting Provider: Fredo Robb MD Consult Discharge Plan - Plan Referrals: Alena Britt, TOY ASSEMBLY SUPERVISOR [Primary Care Provider] - (1) Falls Qualifiers: Encounter type: initial encounter Qualified Code(s): W19.XXXA - Unspecified fall, initial encounter (5) Diabetes Qualifiers: Diabetes mellitus type: type 2 Diabetes mellitus correction insulin use: without long haul truck driver use Diabetes mellitus complication status: without complication Qualified Code(s): E11.9 - Type 2 diabetes mellitus without complications (6) Hyperlipidemia Qualifiers: Hyperlipidemia type: unspecified Qualified Code(s): E78.5 - Hyperlipidemia, unspecified
[2019-03-28] MEDS ORDERED: methylPREDNISolone 125 MG/2 ML VIAL IVP ONE (12:32)
--- NOTE | 2019-03-28 12:41 | Neurology Progress Note ---
Date of Encounter: 03/28/19 Time of Encounter: 12:39 Assessment and Plan (1) History of multiple sclerosis Current Visit: Yes Status: Acute MRI of the brain did not show any active lesions, there is no active and has been reported and no evidence of any relapse on clinical exam neither on imaging studies of the brain and cervical spine. She noted to have some a lot of white matter changes which could be related to chronic ischemic disease are at the same time could be related to chronic demyelination At this time do not think that she would need any other treatment for her multiple sclerosis perhaps would benefit from follow-up with neurology as an outpatient MRI of the cervical spine also did not show any lesions in the cervical cord it shows mild degenerative changes (2) Falls Current Visit: Yes Status: Acute This patient difficulty with a gait and balance seems to be multifactorial predominantly dizziness from her back as well as swelling deconditioning in her lower extremities along with the orthopedic issues she is been losing balance and she may continue to fall and continued to be at risk for falls For that reason suggest some short-term rehabilitation for gait and balance training exercises at the same time she may also benefit from medication to decrease the swelling in the lower extremities she also has features of neuropathy that is also making her gait and balance worse Qualifiers: Encounter type: subsequent encounter Qualified Code(s): W19.XXXD - Unspecified fall, subsequent encounter Subjective Interval history: Patient seen as an follow-up she seemed to be stable still having weakness of the lower extremities MRI of the brain did not show any acute abnormalities showed chronic ischemic changes or perhaps demyelination but no active lesions noted in brain neither in the cervical spine Objective - Constitutional Vitals: Temp Pulse Resp BP Pulse Ox 97.9 F 69 15 115/74 92 03/28/19 11:46 03/28/19 11:46 03/28/19 11:46 03/28/19 11:46 03/28/19 11:46 - Neurological Exam Sensorimotor examination: Present: intact Motor examination - right side: 4/5: deltoids, biceps, triceps, wrist flexion, wrist extension, industrial maintenance repairer, hip flexors, tibialis Anterior, quadriceps, toe extension (EHL), plantarflexion Motor examination - left side: 4/5: deltoids, biceps, triceps, wrist flexion, wrist extension, hip flexors, industrial maintenance repairer, quadriceps, tibialis Anterior, toe extension (EHL), plantarflexion Sensation intact: Present: intact Reflex and gait examination: intact Reflexes: Biceps: 1+, Triceps: 1+, Brachioradialis: 1+, Patella: 0, Achilles: 0 Mental Status Examination: Present: awake, alert, oriented to person, oriented to place, oriented to time, follows commands appropriately, answers questions appropriately Cranial nerve examination: Present: PERRL, EOMI, visual roberts intact, no facial asymmetry is present, no dysarthria Cerebellar examination: Present: no dysmetria Results - Laboratory Findings CBC and BMP: 03/27/19 03:27 03/27/19 03:27 Abnormal lab findings: Abnormal lab results PT 15.9 Seconds (9.4-12.1) H 03/27/19 03:27 Carbon Dioxide 31 mEq/L (23-29) H 03/26/19 10:46 Est GFR (Non-Af Amer) 52 (> 60) L 03/27/19 03:27 Glucose 151 mg/dL (70-105) H 03/27/19 03:27 POC Glucose 193 mg/dL (70-99) H 03/27/19 20:28 6.6 % (-5.6) H 03/26/19 10:46 Magnesium 1.4 mg/dL (1.6-2.6) L 03/27/19 03:27 6.3 g/dL (6.4-8.9) L 03/27/19 03:27 Triglycerides 157 mg/dL (< 150) H 03/27/19 03:27 VLDL Cholesterol, Calc 31 mg/dL (< 31) H 03/27/19 03:27 - Diagnostic Findings Additional findings: MRI of the lumbar spine showed At L5-S1 there is uncovering of the disc due to anterolisthesis with a superimposed broad-based right paracentral/foraminal disc protrusion measuring up to 8.8 mm in AP diameter. This results in moderate to severe narrowing of the right neural foramen with contact of the exiting L5 nerve root but no significant nerve root compression. MR/MR head wo/w con, No acute intracranial abnormality identified. No evidence of any active enhancement chronic ischemic changes could be demyelination MRI of the cervical spine, No cervical cord abnormality detected. Mild degenerative changes Consult Discharge Plan - Plan Referrals: Alena Britt, TRANSITION MGR [Primary Care Provider] -
[2019-03-28] MEDS: tiZANidine 4 MG TABLET PO PRN (14:15)
[2019-03-28] MEDS: Melatonin 3 MG TABLET PO SCH (21:21)
[2019-03-29 06:53] LABS: Hematocrit 39.4 % (35.3-44.9); Hemoglobin 12.7 g/dL (11.5-15.4); Mean Corpuscular HGB Conc 32.2 g/dL (31.6-35.5); Mean Corpuscular Hemoglobin 30.2 pg (28.0-33.3); Mean Corpuscular Volume 93.8 fL (83.0-100.0); Mean Platelet Volume 11.9 fL (9.4-12.4); Platelet Count 192 K/mcL (140-400); Red Cell Distribution Width 13.8 % (11.5-14.5)
[2019-03-29 07:58] LABS: Alanine Aminotransferase 16 Units/L (7-52); Albumin 3.9 g/dL (3.5-5.7); Albumin/Globulin Ratio 1.4 (1.1-2.2); Alkaline Phosphatase 56 Units/L (34-104); Aspartate Amino Transferase 12 Units/L (13-39); BUN/Creatinine Ratio 27 (6-26); Bilirubin,Total 0.5 mg/dL (0.3-1.0); Blood Urea Nitrogen 26 mg/dL (8-23); Calcium 9.6 mg/dL (8.6-10.3); Carbon Dioxide 26 mEq/L (23-29); Chloride 104 mEq/L (98-107); Globulin 2.7 g/dL (2.4-3.5); Glucose 216 mg/dL (70-105); Osmolality,Calculated 299 (280-300); Potassium 4.2 mEq/L (3.5-5.1); Sodium 139 mEq/L (136-145); Total Protein 6.6 g/dL (6.4-8.9); eGFR For Non-African Americans 60 (> 60)
[2019-03-29] MEDS: Insulin LISPRO 300 UNITS/3 ML VIAL SQ SCH ×4 (08:16→20:37)
[2019-03-29] MEDS: Acyclovir 200 MG CAPSULE PO SCH ×2 (08:16→20:26)
[2019-03-29] MEDS: BUSPIRONE HCL 10 MG TABLET PO SCH ×2 (08:16→20:26)
[2019-03-29] MEDS: Apixaban 5 MG TABLET PO SCH ×2 (08:16→20:27)
[2019-03-29] MEDS: Spironolactone 25 MG TABLET PO SCH (08:16)
[2019-03-29] MEDS: (Liraglutide [Victoza 2-Pak] 1.2 MG) SQ SCH (08:17)
--- NOTE | 2019-03-29 12:54 | Internal Med Progress Note ---
Hospitalist Progress Note - Encounter Date of Encounter: 03/29/19 Time of Encounter: 09:30 - Subjective Interval History: Ms. Ayoub is a 63-year-old female with a history of MS, diabetes, hypertension, on Xarelto for history of Left lower extremity DVT in 1982 Pulmonary embolism in February 2018 who presented for evaluation of generalized weakness and recurrent falls during the last 24 hrs due to her legs giving out on her. The patient is complaining of low back pain as well as neck pain. Imaging studies revealed no significant abnormalities, The patient was admitted for further evaluation for possible MS flare up. Her Brain MRI did not show any acute intracranial abnormality. Her cervical and lumbar spine MRI did not show any abnormalities other than degenerative changes. Patient was given IV Solu- Medrol x 1 dose yesterday. Today patient stated she is feeling little better today. Still having bilateral lower extremity weakness and lethargic - Exam Vitals: Temp Pulse Resp BP Pulse Ox 98.5 F 75 16 117/69 93 03/29/19 11:00 03/29/19 11:00 03/29/19 11:00 03/29/19 11:03/29/19 11:00 Exam: Gen: Alert, awake, Oriented to time,place and person Chest: Diminished breath sounds B/L, No wheezing, No crackles, No rales Heart: S1S2+ RRR No murmurs Abd: Soft, NT, BS +, No organomegaly Ext: trace edema, pulses are palpable, No calf tenderness Neuro : b/l LE weakness..Strength 3/5 in LE. 4/5 in UEs Skin: No rash. - Assessment and Plan (1) Multiple sclerosis Current Visit: Yes Status: Acute Assessment and Plan: Reviewed her Brain MRI and Cervical / Lumbar spine - no new lesions noticed unclear wether she had any flare up, however she felt better with Iv steroids will talk to Neurology about a short course of steroid therapy Patient does need to stay in the hospital more than 2 midnights due to his complex medical problems. So we will change him to full admission today. I did review my colleague Dr. Clifford's H & P including HPI, PMH, PSH, FH, SH, and ROS no changes noticed (2) Falls Current Visit: Yes Status: Acute Assessment and Plan: Due to severe physical deconditioning could be due to her underline MS and severe DJD PT / OT eval May need short term PT / OT (3) Renal mass Current Visit: Yes Status: Acute Assessment and Plan: Lumbar spine MRI showed possible right kidney mass and thickening of bladder. Abdomen/pelvis CT showed 6 cm complicated right renal cyst. There is also a 3 x 2 cm non dependent mural component that may represent soft tissue or blood clot. Will consult Nephro (4) Hypertension Current Visit: Yes Status: Acute Assessment and Plan: Stable blood pressure with the current regimen (5) Diabetes Current Visit: Yes Status: Acute Assessment and Plan: on ADA diet on ISS (6) Hyperlipidemia Current Visit: Yes Status: Acute Assessment and Plan: Cont home statin (7) History of deep vein thrombosis (DVT) of lower extremity Current Visit: Yes Status: Acute Assessment and Plan: hx DVT and pulmonary embolism Cont home med eliquis (8) DVT prophylaxis Current Visit: Yes Status: Acute Assessment and Plan: eliquis - Time Spent with Patient Total time spent is greater than 50% in coordination of care (as documented) at patient's floor/unit and/or counseling patient: Internal Medicine: Result - Labs CBC & Chem 7: 03/29/19 02:46 03/29/19 06:54 Labs: Short CBC 03/29/19 Range/Units 02:46 WBC 7.9 (4.3-11.1) K/mcL Hgb 12.7 (11.5-15.4) g/dL Hct 39.4 (35.3-44.9) % Plt Count 192 (140-400) K/mcL BMP 03/29/19 06:54 Sodium 139 Potassium 4.2 Chloride 104 Carbon Dioxide 26 BUN 26 H Creatinine 0.95 Glucose 216 H Calcium 9.6 Liver Function 03/29/19 Range/Units 06:54 Total Bilirubin 0.5 (0.3-1.0) mg/dL AST 12 L (13-39) Units/L ALT 16 (7-52) Units/L Alkaline Phosphatase 56 (34-104) Units/L Albumin 3.9 (3.5-5.7) g/dL - ABG Interpretation ABG results: PT/INR, D-dimer PT 15.9 Seconds (9.4-12.1) H 03/27/19 03:27 - Impressions Impressions Abdomen/Pelvis CT 03/28/19 10:26 IMPRESSION: 1. 6 cm complicated right renal cyst. This appears to contain some dependent debris. There is also a 3 x 2 cm non dependent mural component that may represent soft tissue or blood clot. Dedicated pre and post contrast renal MR or CT would be optimal for evaluation of the spine 2. Abnormal appearance of the urinary bladder suggesting chronic bladder dysfunction, with a large right-sided diverticulum containing debris. There is mild bilateral hydroureteronephrosis presumably secondary to increased bladder pressure 3. Colonic diverticulosis D/ / Wilian Birch MD / Wilian Birch MD Interpreting Provider: Wilian Birch MD Consult Discharge Plan - Plan Referrals: Alena Britt, NEUROBIOLOGIST [Primary Care Provider] - (2) Falls Qualifiers: Encounter type: subsequent encounter Qualified Code(s): W19.XXXD - Unspecified fall, subsequent encounter (4) Hypertension Qualifiers: Hypertension type: essential hypertension Qualified Code(s): I10 - Essential (primary) hypertension (5) Diabetes Qualifiers: Diabetes mellitus type: type 2 Diabetes mellitus custodial insulin use: without custodial use Diabetes mellitus complication status: without complication Qualified Code(s): E11.9 - Type 2 diabetes mellitus without complications (6) Hyperlipidemia Qualifiers: Hyperlipidemia type: unspecified Qualified Code(s): E78.5 - Hyperlipidemia, unspecified
--- NOTE | 2019-03-29 13:56 | Urology - Consult Note ---
<Claudia Simental N - Last Filed: 03/29/19 13:54> Date of Encounter: 03/29/19 Time of Encounter: 13:30 - Assessment and Plan (1) Renal mass Current Visit: Yes Status: Acute Assessment and plan: Patient is a 63-year-old female who presents with a 6 cm right renal mass. Patient is not experiencing flank pain or gross hematuria. Patient was unaware of renal mass prior to reviewing CT results. Patient is unsure when she last had upper tract imaging. I reviewed findings of CT results with patient at bedside, and she agreed to proceed with an MRI of the abdomen with and without contrast. We will order this study for tomorrow morning and discuss results. (2) Voiding dysfunction Current Visit: Yes Status: Acute Assessment and plan: Patient is a 63-year-old female who presents with significant voiding dysfunction including urinary urgency, frequency and urge incontinence. Patient has MS, significant right bladder diverticulum and mild hydronephrosis. Patient self catheterized in the past, but I am not sure she is physically able to perform this now. I will order a bladder scan in order to evaluate post void residual. Urology CN:HPI Consult date: 03/29/19 Reason for consult Urology: Other (right renal mass) Requesting physician: Josselyn Almanza History of present illness: Patient is a 63-year-old female who presents with a 6 cm right renal mass. Patient initially presented to the emergency department due to generalized weakness and multiple falls at home. Patient has a past medical history significant for multiple sclerosis and left lower extremity DVT for which she takes Xarelto. Patient underwent a CT of the abdomen and pelvis revealing a 6 cm right renal mass with solid component, possibly soft tissue or blood. Patient's bladder appears dysfunctional and there is a large right-sided diverticulum with moderate debris and mild bilateral hydronephrosis. Patient states she is aware of the diverticulum and was diagnosed with this approximately 30 years ago. Patient currently follows with a urologist at [facility] and is being treated for overactive bladder. Patient has undergone cystoscopy, but it was several years ago. Patient has a significant past uro logic history for renal stones, urinary retention with incomplete bladder emptying, and large right bladder diverticulum. Patient was taught to self catheterize, but she no longer does this secondary to infection risk. Patient admits to significant baseline voiding dysfunction including frequency, urgency and urge incontinence. Patient states she is using up to 10 pads per day and rarely feels dry. Patient is taking oxybutynin daily, but she does not feel this is alleviating her symptoms. Patient denies any gross hematuria, dysuria or flank pain. Patient has a 30 year smoking history, but she stopped smoking approximately 10 years ago. Patient has a significant family history of renal stones through her father, but she does not have any known documented family history of malignancy. Past Med Surg Social Fam HX - Past Medical History Medical history: arthritis, atrial fibrillation, DVT, diabetes, GERD, glaucoma, hyperlipidemia, hypertension, pulmonary embolus, other Additional medical history: mult.sclerosis. sleep apnea with cpap. hx pulm emboli Psychiatric history: anxiety - Past Surgical History Surgical History: cataract, herniorrhaphy, other Additional surgical history: left saph ablation. 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 left knee scope - Social History Smoking Status: Former smoker Smokeless Tobacco Status: No Alcohol use: none Drug use: none - Family History Mother Living Status: Still Living Hx Family Respiratory Disorders: Yes (COPD) Father Living Status: Hx Family Cardiac Disorders: Yes (HTN, Heartache) Medications and Allergies Acyclovir [Zovirax] 400 mg PO BID 02/21/18 [History] Buspirone HCl [Buspar] 20 mg PO BID 02/21/18 [History] Docusate Sodium [Dok] 100 mg PO BID PRN 02/21/18 [History] Omeprazole [PriLOSEC] 40 mg PO DAILY 02/21/18 [History] Sertraline [Zoloft] 200 mg PO DAILY 02/21/18 [History] Simvastatin [Zocor] 40 mg PO HS 02/21/18 [History] Apixaban [Eliquis] 5 mg PO BID 08/28/18 [History] Atenolol [Tenormin] 25 mg PO DAILY 02/01/19 [History] Spironolactone [Aldactone] 25 mg PO QAM 02/01/19 [History] Liraglutide [Victoza 2-Primo] 1.2 mg SQ DAILY 03/26/19 [History] Lisinopril [Zestril] 5 mg PO DAILY 03/26/19 [History] Melatonin 10 mg PO HS 03/26/19 [History] Metformin HCl [Glucophage] 1,000 mg PO BIDWM 03/26/19 [History] Timolol Maleate 1 drop BOTH EYES DAILY 03/26/19 [History] Tizanidine HCl 2 mg PO TID PRN 03/26/19 [History] Trospium Chloride 20 mg PO BID 03/26/19 [History] Allergy/AdvReac Type Severity Reaction Status Date / Time bacitracin Allergy See Verified 03/26/19 14:28 [From Neosporin Comments ([id number])] Neomycin Allergy See Verified 03/26/19 14:28 [From Neosporin Comments ([id number])] polymyxin B Allergy See Verified 03/26/19 14:28 [From Neosporin Comments ([id number])] bandaid Allergy Rash Uncoded 08/28/18 10:07 Review of Systems - Constitutional no chills, no fatigue, no fever(s) - EENT Nose, mouth and throat: dizziness, no headache(s) - Cardiovascular no chest pain, no diaphoresis, no dyspnea - Respiratory no cough, no dyspnea - Gastrointestinal no abdominal pain, no nausea, no vomiting - Genitourinary Genitourinary: nocturia, urinary frequency, urinary incontinence, urinary urgency, no difficulty urinating, no dysuria, no flank pain, no hematuria, no urinary hesitancy - Musculoskeletal back pain, no muscle weakness - Integumentary no erythema, no rash - Neurological no confusion, no sensory deficit - Psychiatric no anxiety, no confusion - Hematologic/Lymphatic no easy bleeding, no easy bruising - Allergic/Immunologic no throat swelling, no wheezing Exam Initial Vital Signs Temp Pulse Resp BP Pulse Ox 98.4 F 74 16 114/91 98 03/26/19 10:37 03/26/19 10:37 03/26/19 10:37 03/26/19 10:37 03/26/19 10:37 - General physical appearance Present: no distress, no pain, obese - Eyes Present: PERRL, normal ocular movement - ENT Present: normal nares, no hearing loss, no congestion - Neck Present: no masses, trachea midline, no lymphadenopathy - Respiratory Present: normal respiratory effort - Cardiovascular Cardiovascular exam IM: RRR - Abdomen Abdomen: Present: soft, non tender - Genitourinary Present: other (no CVAT) - Integumentary Present: no rash, no abnormal pigmentation - Neurologic Present: normal coordination - Musculoskeletal Present: other (normal posture ) Urology Results - Labs 03/29/19 02:46 03/29/19 06:54 Abnormal lab results PT 15.9 Seconds (9.4-12.1) H 03/27/19 03:27 Carbon Dioxide 31 mEq/L (23-29) H 03/26/19 10:46 BUN 26 mg/dL (8-23) H 03/29/19 06:54 Est GFR (Non-Af Amer) 52 (> 60) L 03/27/19 03:27 27 (6-26) H 03/29/19 06:54 Glucose 216 mg/dL (70-105) H 03/29/19 06:54 POC Glucose 243 mg/dL (70-99) H 03/28/19 16:11 6.6 % (-5.6) H 03/26/19 10:46 Magnesium 1.4 mg/dL (1.6-2.6) L 03/27/19 03:27 AST 12 Units/L (13-39) L 03/29/19 06:54 6.3 g/dL (6.4-8.9) L 03/27/19 03:27 Triglycerides 157 mg/dL (< 150) H 03/27/19 03:27 VLDL Cholesterol, Calc 31 mg/dL (< 31) H 03/27/19 03:27 Diabetes panel 03/29/19 Range/Units 06:54 Sodium 139 (136-145) mEq/L Potassium 4.2 (3.5-5.1) mEq/L Chloride 104 (98-107) mEq/L Carbon Dioxide 26 (23-29) mEq/L BUN 26 H (8-23) mg/dL Creatinine 0.95 (0.60-1.20) mg/dL Glucose 216 H (70-105) mg/dL Calcium 9.6 (8.6-10.3) mg/dL AST 12 L (13-39) Units/L ALT 16 (7-52) Units/L Alkaline Phosphatase 56 (34-104) Units/L Albumin 3.9 (3.5-5.7) g/dL Calcium panel 03/29/19 Range/Units 06:54 Calcium 9.6 (8.6-10.3) mg/dL Albumin 3.9 (3.5-5.7) g/dL Pituitary panel 03/29/19 Range/Units 06:54 Sodium 139 (136-145) mEq/L Potassium 4.2 (3.5-5.1) mEq/L Chloride 104 (98-107) mEq/L Carbon Dioxide 26 (23-29) mEq/L BUN 26 H (8-23) mg/dL Creatinine 0.95 (0.60-1.20) mg/dL Glucose 216 H (70-105) mg/dL Calcium 9.6 (8.6-10.3) mg/dL Adrenal panel 03/29/19 Range/Units 06:54 Sodium 139 (136-145) mEq/L Potassium 4.2 (3.5-5.1) mEq/L Chloride 104 (98-107) mEq/L Carbon Dioxide 26 (23-29) mEq/L BUN 26 H (8-23) mg/dL Creatinine 0.95 (0.60-1.20) mg/dL Glucose 216 H (70-105) mg/dL Calcium 9.6 (8.6-10.3) mg/dL Total Bilirubin 0.5 (0.3-1.0) mg/dL AST 12 L (13-39) Units/L ALT 16 (7-52) Units/L Alkaline Phosphatase 56 (34-104) Units/L Albumin 3.9 (3.5-5.7) g/dL All other labs normal. - Imaging CT scan - abdomen: report reviewed, image reviewed CT scan - pelvis: report reviewed, image reviewed Consult Discharge Plan - Plan Referrals: Alena Britt CNP [Primary Care Provider] - <Vamsi Hayward - Last Filed: 03/30/19 08:03> Date of Encounter: 03/30/19 - Assessment and Plan (1) Renal mass Current Visit: Yes Status: Acute Assessment and plan: Patient seen and examined independently. History, review of systems and physical exam findings of PA verified. All pertinent imaging reviewed. I am in agreement with the assessment and plan as outlined by our Urologic Surgery Department Physician Executive Producer, Kamille. Findings discussed with patient. Definitive imaging via MRI with and without contrast (2) Bladder diverticulum Current Visit: Yes Status: Acute Assessment and plan: Large right-sided bladder diverticulum. Patient with history of incomplete bladder emptying. Plan: Outpatient cystoscopy (3) Hydronephrosis Current Visit: Yes Status: Acute Assessment and plan: Mild bilateral hydronephrosis. Potentially related to increased bladder pressures. Does not appear functionally significant. Plan: Outpatient cystos copy Qualifiers: Hydronephrosis type: other Qualified Code(s): N13.39 - Other hydronephrosis Exam Initial Vital Signs Temp Pulse Resp BP Pulse Ox 98.4 F 74 16 114/91 98 03/26/19 10:37 03/26/19 10:37 03/26/19 10:37 03/26/19 10:37 03/26/19 10:37 Urology Results - Labs 03/30/19 04:55 03/30/19 04:55 Abnormal lab results PT 15.9 Seconds (9.4-12.1) H 03/27/19 03:27 Carbon Dioxide 31 mEq/L (23-29) H 03/26/19 10:46 BUN 34 mg/dL (8-23) H 03/30/19 04:55 Est GFR (Non-Af Amer) 54 (> 60) L 03/30/19 04:55 33 (6-26) H 03/30/19 04:55 Glucose 322 mg/dL (70-105) H 03/30/19 04:55 POC Glucose 259 mg/dL (70-99) H 03/29/19 20:36 6.6 % (-5.6) H 03/26/19 10:46 306 (280-300) H 03/30/19 04:55 Magnesium 1.4 mg/dL (1.6-2.6) L 03/27/19 03:27 AST 12 Units/L (13-39) L 03/29/19 06:54 6.3 g/dL (6.4-8.9) L 03/27/19 03:27 Triglycerides 157 mg/dL (< 150) H 03/27/19 03:27 VLDL Cholesterol, Calc 31 mg/dL (< 31) H 03/27/19 03:27 Diabetes panel 03/30/19 Range/Units 04:55 Sodium 138 (136-145) mEq/L Potassium 4.6 (3.5-5.1) mEq/L Chloride 102 (98-107) mEq/L Carbon Dioxide 25 (23-29) mEq/L BUN 34 H (8-23) mg/dL Creatinine 1.03 (0.60-1.20) mg/dL Glucose 322 H (70-105) mg/dL Calcium 9.1 (8.6-10.3) mg/dL AST 13 (13-39) Units/L ALT 19 (7-52) Units/L Alkaline Phosphatase 51 (34-104) Units/L Albumin 3.7 (3.5-5.7) g/dL Calcium panel 03/30/19 Range/Units 04:55 Calcium 9.1 (8.6-10.3) mg/dL Albumin 3.7 (3.5-5.7) g/dL Pituitary panel 03/30/19 Range/Units 04:55 Sodium 138 (136-145) mEq/L Potassium 4.6 (3.5-5.1) mEq/L Chloride 102 (98-107) mEq/L Carbon Dioxide 25 (23-29) mEq/L BUN 34 H (8-23) mg/dL Creatinine 1.03 (0.60-1.20) mg/dL Glucose 322 H (70-105) mg/dL Calcium 9.1 (8.6-10.3) mg/dL Adrenal panel 03/30/19 Range/Units 04:55 Sodium 138 (136-145) mEq/L Potassium 4.6 (3.5-5.1) mEq/L Chloride 102 (98-107) mEq/L Carbon Dioxide 25 (23-29) mEq/L BUN 34 H (8-23) mg/dL Creatinine 1.03 (0.60-1.20) mg/dL Glucose 322 H (70-105) mg/dL Calcium 9.1 (8.6-10.3) mg/dL Total Bilirubin 0.4 (0.3-1.0) mg/dL AST 13 (13-39) Units/L ALT 19 (7-52) Units/L Alkaline Phosphatase 51 (34-104) Units/L Albumin 3.7 (3.5-5.7) g/dL All other labs normal.
--- NOTE | 2019-03-29 15:14 | Neurology Progress Note ---
<Dayday Valenzuela J - Last Filed: 03/29/19 15:07> Date of Encounter: 03/29/19 Time of Encounter: 15:07 Assessment and Plan (1) Falls Current Visit: Yes Status: Acute With the exception of LLE weakness the neuro exam is nonfocal Neurology consulted due to history of multiple falls Patient continues to have significant gait impairment due to severe left lower extremity weakness History of MS; exacerbation in 2017. Treated at [facility] She reports that she has been walker dependent 2/2 severe weakness of LLE; weakness worse than baseline during this admission MRI findings do not suggest an acute exacerbation of MS at this time. Additionally, no acute ischemic disease. MRI C-spine is negative for coronary disease. Mild degenerative changes. Do not feel that MRI C-spine findings are contributing to weakness Patient also noting low back pain with movement of left leg Weakness likely multifactorial with deconditioning and pain Recommend PT/OT and rehabilitation Neurology will sign off at this time Qualifiers: Encounter type: subsequent encounter Qualified Code(s): W19.XXXD - Unsp ecified fall, subsequent encounter (2) History of multiple sclerosis Current Visit: Yes Status: Acute Past medical history of MS Patient reports most recent exacerbation in 2017; treated at [facility] MRI of the brain this admission did not reveal any active lesions MR of the C-spine did not show any lesions in the cervical cord but did reveal mild degenerative changes White matter changes seen on MRI could be chronic ischemic disease but could also be caused by chronic demyelination At this time we do not recommend any further treatment for an as Follow-up with neurology outpatient in 3-4 weeks c/w PT/OT; may need inpatient rehab 2/2 significant weakness of LLE Subjective Principal diagnosis: Falls Interval history: The patient is seen in follow-up for falls and her extremity weakness. Weakness most notable in the left lower extremity occurring S/P exacerbation of MS in 2017. MS exacerbation of 2017 treated at [facility]. This admission she has had repeat MRI imaging of the brain which did not show any acute abnormalities, most notably no acute demyelination. Objective - Constitutional Vitals: Temp Pulse Resp BP Pulse Ox 98.5 F 75 16 117/69 93 03/29/19 11:00 03/29/19 11:00 03/29/19 11:00 03/29/19 11:00 03/29/19 11:00 Exam: Examination: General Examination: *CONSTITUTIONAL: Alert and oriented x3, no acute distress *GENERAL APPEARANCE OF PATIENT elderly obese female *EYES: pupils equal, round, reactive to light and accommodation, conjunctiva clear *CARDIOVASCULAR no peripheral edema, distal temperature normal, dorsalis pedis pulses normal. see vitals Musculoskeletal: *GAIT AND STATION normal, with normal Romberg testing, no abnormalities such as broad base gait or spasticity *ASSESSMENT OF MUSCLE STRENGTH IN THE UPPER AND LOWER EXTREMITIES bilateral deltoid, bicep, tricep, bone worker strength 4/5, Right hip flexor, anterior tibialis and dorsiflexion 4/5, left hip flexors ,anterior tibialis, dorsoflexion of the foot 2/5 *MUSCLE TONE IN THE UPPER AND LOWER EXTREMITIES normal. No abnormal movements, fasciculations or atrophy identified. Neurological: *ORIENTATION to person, situation, time and place *RECURRENT AND REMOTE MEMORY intact *ATTENTION AND CONCENTRATION are normal *LANGUAGE FUNCTION no significant aphasia or dysarthia was noted. *FUND OF KNOWLEDGE aware of current events, past history, vocabulary *MENTAL attention span and concentration normal. *CN II optic fundi were normal, no papilledema noted. *CN III,IV, PERRLA extraocular eye movements were full, no nystagmus and no ptosis noted. *CN V shows normal sensation and jaw opens symmetrically. *CN VII shows normal facial movement symmetrically, upper and lower bilaterally. *CN VIII shows no significant hearing loss on exam *CN IX,,X palate elevated symmetrically *CN XI normal strength in the sternocleidomastoid muscles, symmetrical shoulder shrugging. *CN XII tongue protruded in the midline, with normal strength and movement. *SENSORY EXAMINATION light touch intact *REFLEXES: DTR's brachial radialis, biceps and triceps 1+, patella and Achilles 0 *CEREBELLAR TESTING normal finger to nose, heel/knee/glasgow *PAIN LEVEL 0/10 - Neurological Exam Sensorimotor examination: Present: intact Motor examination - left side: 4/5: deltoids, biceps, triceps, wrist flexion, wrist extension, hip flexors, bone worker, quadriceps, tibialis Anterior, toe extension (EHL), plantarflexion Sensation intact: Present: intact Reflex and gait examination: intact Mental Status Examination: Present: awake, alert, oriented to person, oriented to place, oriented to time, follows commands appropriately, answers questions appropriately Cranial nerve examination: Present: PERRL, EOMI, visual roberts intact, no facial asymmetry is present, no dysarthria Cerebellar examination: Present: no dysmetria Results - Laboratory Findings CBC and BMP: 03/29/19 02:46 03/29/19 06:54 Abnormal lab findings: Abnormal lab results PT 15.9 Seconds (9.4-12.1) H 03/27/19 03:27 Carbon Dioxide 31 mEq/L (23-29) H 03/26/19 10:46 BUN 26 mg/dL (8-23) H 03/29/19 06:54 Est GFR (Non-Af Amer) 52 (> 60) L 03/27/19 03:27 27 (6-26) H 03/29/19 06:54 Glucose 216 mg/dL (70-105) H 03/29/19 06:54 POC Glucose 243 mg/dL (70-99) H 03/28/19 16:11 6.6 % (-5.6) H 03/26/19 10:46 Magnesium 1.4 mg/dL (1.6-2.6) L 03/27/19 03:27 AST 12 Units/L (13-39) L 03/29/19 06:54 6.3 g/dL (6.4-8.9) L 03/27/19 03:27 Triglycerides 157 mg/dL (< 150) H 03/27/19 03:27 VLDL Cholesterol, Calc 31 mg/dL (< 31) H 03/27/19 03:27 Consult Discharge Plan - Plan Referrals: Alena Britt CNP [Primary Care Provider] - <Hardeep Stephenson I - Last Filed: 03/29/19 16:08> Date of Encounter: 03/29/19 Assessment and Plan (1) History of multiple sclerosis Current Visit: Yes Status: Acute I have personally performed a face to face diagnostic evaluation, including HPI, EXAM, which is included in the Assesment and plan, which was discussed with Dayday Valenzuela CNP, I agree with the above outlined documentation. Hardeep Stephenson MD. NeurologyI (2) Falls Current Visit: Yes Status: Acute Qualifiers: Encounter type: subsequent encounter Qualified Code(s): W19.XXXD - Unspecified fall, subsequent encounter Objective - Constitutional Vitals: Temp Pulse Resp BP Pulse Ox 98.3 F 70 18 121/81 94 03/29/19 15:16 03/29/19 15:16 03/29/19 15:16 03/29/19 15:16 03/29/19 15:16 Results - Laboratory Findings CBC and BMP: 03/29/19 02:46 03/29/19 06:54 Abnormal lab findings: Abnormal lab results PT 15.9 Seconds (9.4-12.1) H 03/27/19 03:27 Carbon Dioxide 31 mEq/L (23-29) H 03/26/19 10:46 BUN 26 mg/dL (8-23) H 03/29/19 06:54 Est GFR (Non-Af Amer) 52 (> 60) L 03/27/19 03:27 27 (6-26) H 03/29/19 06:54 Glucose 216 mg/dL (70-105) H 03/29/19 06:54 POC Glucose 243 mg/dL (70-99) H 03/28/19 16:11 6.6 % (-5.6) H 03/26/19 10:46 Magnesium 1.4 mg/dL (1.6-2.6) L 03/27/19 03:27 AST 12 Units/L (13-39) L 03/29/19 06:54 6.3 g/dL (6.4-8.9) L 03/27/19 03:27 Triglycerides 157 mg/dL (< 150) H 03/27/19 03:27 VLDL Cholesterol, Calc 31 mg/dL (< 31) H 03/27/19 03:27
[2019-03-29] MEDS: predniSONE 20 MG TABLET PO SCH (16:48)
[2019-03-29] MEDS: Melatonin 3 MG TABLET PO SCH (20:26)
[2019-03-30 05:43] LABS: Hematocrit 39.1 % (35.3-44.9); Mean Corpuscular HGB Conc 33.2 g/dL (31.6-35.5); Mean Corpuscular Hemoglobin 30.7 pg (28.0-33.3); Mean Corpuscular Volume 92.2 fL (83.0-100.0); Platelet Count 190 K/mcL (140-400); Red Blood Count 4.24 M/mcL (3.82-4.97); Red Cell Distribution Width 13.9 % (11.5-14.5)
[2019-03-30 06:03] LABS: Alanine Aminotransferase 19 Units/L (7-52); Albumin 3.7 g/dL (3.5-5.7); Albumin/Globulin Ratio 1.2 (1.1-2.2); Alkaline Phosphatase 51 Units/L (34-104); Aspartate Amino Transferase 13 Units/L (13-39); BUN/Creatinine Ratio 33 (6-26); Bilirubin,Total 0.4 mg/dL (0.3-1.0); Blood Urea Nitrogen 34 mg/dL (8-23); Calcium 9.1 mg/dL (8.6-10.3); Carbon Dioxide 25 mEq/L (23-29); Chloride 102 mEq/L (98-107); Globulin 3.1 g/dL (2.4-3.5); Glucose 322 mg/dL (70-105); Osmolality,Calculated 306 (280-300); Potassium 4.6 mEq/L (3.5-5.1); Sodium 138 mEq/L (136-145); Total Protein 6.8 g/dL (6.4-8.9); eGFR For Non-African Americans 54 (> 60)
[2019-03-30] MEDS ORDERED: Gadolinium Contrast Agent (WT Based) IV PRN (07:00)
[2019-03-30] MEDS ORDERED: *HR* LORazepam 2 MG/ML VIAL IVP ONE (08:05)
[2019-03-30] MEDS: Spironolactone 25 MG TABLET PO SCH (08:21)
[2019-03-30] MEDS: predniSONE 20 MG TABLET PO SCH (08:21)
[2019-03-30] MEDS: Insulin LISPRO 300 UNITS/3 ML VIAL SQ SCH ×4 (08:21→20:34)
[2019-03-30] MEDS: BUSPIRONE HCL 10 MG TABLET PO SCH ×2 (08:21→20:26)
[2019-03-30] MEDS: Acyclovir 200 MG CAPSULE PO SCH ×2 (08:21→20:27)
[2019-03-30] MEDS: Apixaban 5 MG TABLET PO SCH ×2 (08:21→20:27)
[2019-03-30] MEDS: (Liraglutide [Victoza 2-Pak] 1.2 MG) SQ SCH (08:23)
--- NOTE | 2019-03-30 13:05 | Urology Progress Note ---
Date of Encounter: 03/30/19 Time of Encounter: 12:15 - Assessment and Plan (1) Renal mass Current Visit: Yes Status: Acute Assessment and plan: Patient is a 63-year old female who presents with a 6cm right renal mass. Reviewed reassuring MRI findings with patient at bedside. Will plan to follow as outpatient within one week for cystoscopy and trial of void. (2) Voiding dysfunction Current Visit: Yes Status: Acute Progress Note Subjective: no new complaints Narrative: Patient seen and examined sitting upright in bed in no apparent distress. Patient admits to intermittent flank pain, but she denies any fever, chills, gross hematuria. Wahl catheter indwelling and draining clear urine into bedside bag. Objective Initial Vital Signs Temp Pulse Resp BP Pulse Ox 98.4 F 74 16 114/91 98 03/26/19 10:37 03/26/19 10:37 03/26/19 10:37 03/26/19 10:37 03/26/19 10:37 - General physical appearance Present: well developed, no distress, no pain - Respiratory Present: normal expansion, normal respiratory effort - Abdomen Present: soft, non tender - Genitourinary Urine Appearance: Present: Clear - Integumentary Present: no rash, no abnormal pigmentation - Musculoskeletal Present: normal posture - Psychiatric Present: oriented to time, oriented to person, oriented to place, speech is normal, memory intact - Labs 03/30/19 04:55 03/30/19 04:55 Diabetes panel 03/30/19 Range/Units 04:55 Sodium 138 (136-145) mEq/L Potassium 4.6 (3.5-5.1) mEq/L Chloride 102 (98-107) mEq/L Carbon Dioxide 25 (23-29) mEq/L BUN 34 H (8-23) mg/dL Creatinine 1.03 (0.60-1.20) mg/dL Glucose 322 H (70-105) mg/dL Calcium 9.1 (8.6-10.3) mg/dL AST 13 (13-39) Units/L ALT 19 (7-52) Units/L Alkaline Phosphatase 51 (34-104) Units/L Albumin 3.7 (3.5-5.7) g/dL Calcium panel 03/30/19 Range/Units 04:55 Calcium 9.1 (8.6-10.3) mg/dL Albumin 3.7 (3.5-5.7) g/dL Pituitary panel 03/30/19 Range/Units 04:55 Sodium 138 (136-145) mEq/L Potassium 4.6 (3.5-5.1) mEq/L Chloride 102 (98-107) mEq/L Carbon Dioxide 25 (23-29) mEq/L BUN 34 H (8-23) mg/dL Creatinine 1.03 (0.60-1.20) mg/dL Glucose 322 H (70-105) mg/dL Calcium 9.1 (8.6-10.3) mg/dL Adrenal panel 03/30/19 Range/Units 04:55 Sodium 138 (136-145) mEq/L Potassium 4.6 (3.5-5.1) mEq/L Chloride 102 (98-107) mEq/L Carbon Dioxide 25 (23-29) mEq/L BUN 34 H (8-23) mg/dL Creatinine 1.03 (0.60-1.20) mg/dL Glucose 322 H (70-105) mg/dL Calcium 9.1 (8.6-10.3) mg/dL Total Bilirubin 0.4 (0.3-1.0) mg/dL AST 13 (13-39) Units/L ALT 19 (7-52) Units/L Alkaline Phosphatase 51 (34-104) Units/L Albumin 3.7 (3.5-5.7) g/dL Consult Discharge Plan - Plan Referrals: Alena Britt CNP [Primary Care Provider] -
--- NOTE | 2019-03-30 14:25 | Internal Med Progress Note ---
Hospitalist Progress Note - Encounter Date of Encounter: 03/30/19 Time of Encounter: 14:24 - Subjective Interval History: Ms. Ayoub is a 63-year-old female with a history of MS, diabetes, hypertension, on Xarelto for history of Left lower extremity DVT in 1982 Pulmonary embolism in February 2018 who presented for evaluation of generalized weakness and recurrent falls during the last 24 hrs due to her legs giving out on her. The patient is complaining of low back pain as well as neck pain. Imaging studies revealed no significant abnormalities, The patient was admitted for further evaluation for possible MS flare up. Her Brain MRI did not show any acute intracranial abnormality. Her cervical and lumbar spine MRI did not show any abnormalities other than degenerative changes. Today patient stated she is feeling little better. Still having bilateral lower extremity weakness and lethargic. Denied any CP / SOB. - Exam Vitals: Temp Pulse Resp BP Pulse Ox 98.0 F 65 18 105/61 92 03/30/19 11:14 03/30/19 11:14 03/30/19 11:14 03/30/19 11:14 03/30/19 11:14 Exam: Gen: Alert, awake, Oriented to time,place and person Chest: Diminished breath sounds B/L, No wheezing, No crackles, No rales Heart: S1S2+ RRR No murmurs Abd: Soft, NT, BS +, No organomegaly Ext: trace edema, pulses are palpable, No calf tenderness Neuro : b/l LE weakness..Strength 3/5 in LE. 4/5 in UEs Skin: No rash. - Assessment and Plan (1) Multiple sclerosis Current Visit: Yes Status: Acute Assessment and Plan: Reviewed her Brain MRI and Cervical / Lumbar spine - no new lesions noticed unclear wether she had any flare up, however she felt better with IV steroids Her falls and physical deconditioning could be due to arthritis flare up too So will give short course of steroid therapy. (2) Falls Current Visit: Yes Status: Acute Assessment and Plan: Due to severe physical deconditioning could be due to her underline MS and severe DJD PT / OT eval May need short term PT / OT (3) Renal mass Current Visit: Yes Status: Acute Assessment and Plan: Lumbar spine MRI showed possible right kidney mass and thickening of bladder. Abdomen/pelvis CT showed 6 cm complicated right renal cyst. There is also a 3 x 2 cm non dependent mural component that may represent soft tissue or blood clot. Consulted Urology who recommend MRI of Abd Reviewed Abd MRI showed 6 cm right renal cyst with findings of internal blood products. No solid components or suspicious features are otherwise appreciated. This is a benign finding. Urology recommend out pt f/u for possible cystoscopy (4) Hypertension Current Visit: Yes Status: Acute Assessment and Plan: Stable blood pressure with the current regimen (5) Diabetes Current Visit: Yes Status: Acute Assessment and Plan: on ADA diet HbA1C 6.6 on ISS (6) Hyperlipidemia Current Visit: Yes Status: Acute Assessment and Plan: Cont home statin (7) History of deep vein thrombosis (DVT) of lower extremity Current Visit: Yes Status: Acute Assessment and Plan: hx DVT and pulmonary embolism Cont home med eliquis (8) DVT prophylaxis Current Visit: Yes Status: Acute Assessment and Plan: eliquis - Time Spent with Patient Total time spent is greater than 50% in coordination of care (as documented) at patient's floor/unit and/or counseling patient: Internal Medicine: Result - Labs CBC & Chem 7: 03/30/19 04:55 03/30/19 04:55 Labs: Short CBC 03/30/19 Range/Units 04:55 WBC 9.4 (4.3-11.1) K/mcL Hgb 13.0 (11.5-15.4) g/dL Hct 39.1 (35.3-44.9) % Plt Count 190 (140-400) K/mcL BMP 03/30/19 04:55 Sodium 138 Potassium 4.6 Chloride 102 Carbon Dioxide 25 BUN 34 H Creatinine 1.03 Glucose 322 H Calcium 9.1 Liver Function 03/30/19 Range/Units 04:55 Total Bilirubin 0.4 (0.3-1.0) mg/dL AST 13 (13-39) Units/L ALT 19 (7-52) Units/L Alkaline Phosphatase 51 (34-104) Units/L Albumin 3.7 (3.5-5.7) g/dL - ABG Interpretation ABG results: PT/INR, D-dimer PT 15.9 Seconds (9.4-12.1) H 03/27/19 03:27 - Impressions Impressions Abdomen MRI 03/30/19 07:00 IMPRESSION: 6 cm right renal cyst with findings of internal blood products. No solid components or suspicious features are otherwise appreciated. This is a benign finding. Additional simple renal cysts are noted. D/ / Eric Gasca / Eric Gasca Interpreting Provider: Eric Gasca Consult Discharge Plan - Plan Referrals: Alena Britt, [facility] [Primary Care Provider] - (2) Falls Qualifiers: Encounter type: subsequent encounter Qualified Code(s): W19.XXXD - Unspecified fall, subsequent encounter (4) Hypertension Qualifiers: Hypertension type: essential hypertension Qualified Code(s): I10 - Essential (primary) hypertension (5) Diabetes Qualifiers: Diabetes mellitus type: type 2 Diabetes mellitus exterminator helper insulin use: without custodial use Diabetes mellitus complication status: without complication Qualified Code(s): E11.9 - Type 2 diabetes mellitus without complications (6) Hyperlipidemia Qualifiers: Hyperlipidemia type: unspecified Qualified Code(s): E78.5 - Hyperlipidemia, unspecified
[2019-03-30] MEDS: Melatonin 3 MG TABLET PO SCH (20:26)
[2019-03-31] MEDS: Apixaban 5 MG TABLET PO SCH ×2 (08:23→19:41)
[2019-03-31] MEDS: BUSPIRONE HCL 10 MG TABLET PO SCH ×2 (08:23→19:41)
[2019-03-31] MEDS: Acyclovir 200 MG CAPSULE PO SCH ×2 (08:23→19:42)
[2019-03-31] MEDS: Spironolactone 25 MG TABLET PO SCH (08:23)
[2019-03-31] MEDS: (Liraglutide [Victoza 2-Pak] 1.2 MG) SQ SCH (08:24)
[2019-03-31] MEDS: Insulin LISPRO 300 UNITS/3 ML VIAL SQ SCH ×4 (08:24→20:47)
[2019-03-31] MEDS: predniSONE 20 MG TABLET PO SCH (08:24)
--- NOTE | 2019-03-31 12:17 | Internal Med Progress Note ---
Hospitalist Progress Note - Encounter Date of Encounter: 03/31/19 Time of Encounter: 11:00 - Subjective Interval History: Ms. Ayoub is a 63-year-old female with a history of MS, diabetes, hypertension, on Xarelto for history of Left lower extremity DVT in 1982 Pulmonary embolism in February 2018 who presented for evaluation of generalized weakness and recurrent falls during the last 24 hrs due to her legs giving out on her. The patient is complaining of low back pain as well as neck pain. Imaging studies revealed no significant abnormalities, The patient was admitted for further evaluation for possible MS flare up. Her Brain MRI did not show any acute intra cranial abnormality. Her cervical and lumbar spine MRI did not show any abnormalities other than degenerative changes. Patient stated she is feeling little better, still having some low back pain and bilateral lower extremity weakness and lethargic. Denied any CP / SOB. - Exam Vitals: Temp Pulse Resp BP Pulse Ox 98.4 F 59 16 113/57 93 03/31/19 12:00 03/31/19 12:00 03/31/19 12:00 03/31/19 12:00 03/31/19 12:00 Exam: Gen: Alert, awake, Oriented to time,place and person Chest: Diminished breath sounds B/L, No wheezing, No crackles, No rales Heart: S1S2+ RRR No murmurs Abd: Soft, NT, BS +, No organomegaly Ext: trace edema, pulses are palpable, No calf tenderness Neuro : b/l LE weakness..Strength 3/5 in LE. 4/5 in UEs Skin: No rash. - Assessment and Plan (1) Multiple sclerosis Current Visit: Yes Status: Acute Assessment and Plan: Reviewed her Brain MRI and Cervical / Lumbar spine - no new lesions noticed unclear wether she had any flare up, however she felt better with IV steroids Her falls and physical deconditioning could be due to arthritis flare up too will finish short course of steroid therapy. (2) Falls Current Visit: Yes Status: Acute Assessment and Plan: Due to severe physical deconditioning could be due to her underline MS and severe DJD PT / OT eval May need short term PT / OT (3) Renal mass Current Visit: Yes Status: Acute Assessment and Plan: Lumbar spine MRI showed possible right kidney mass and thickening of bladder. Abdomen/pelvis CT showed 6 cm complicated right renal cyst. There is also a 3 x 2 cm non dependent mural component that may represent soft tissue or blood clot. Consulted Urology who recommend MRI of Abd Reviewed Abd MRI showed 6 cm right renal cyst with findings of internal blood products. No solid components or suspicious features are otherwise appreciated. This is a benign finding. Urology recommend out pt f/u for possible cystoscopy (4) Hypertension Current Visit: Yes Status: Acute Assessment and Plan: Stable blood pressure with the current regimen (5) Diabetes Current Visit: Yes Status: Acute Assessment and Plan: on ADA diet HbA1C 6.6 on ISS (6) Hyperlipidemia Current Visit: Yes Status: Acute Assessment and Plan: Cont home statin (7) History of deep vein thrombosis (DVT) of lower extremity Current Visit: Yes Status: Acute Assessment and Plan: hx DVT and pulmonary embolism Cont home med eliquis (8) DVT prophylaxis Current Visit: Yes Status: Acute Assessment and Plan: eliquis - Time Spent with Patient Total time spent is greater than 50% in coordination of care (as documented) at patient's floor/unit and/or counseling patient: Internal Medicine: Result - Labs CBC & Chem 7: 03/30/19 04:55 03/30/19 04:55 - ABG Interpretation ABG results: PT/INR, D-dimer PT 15.9 Seconds (9.4-12.1) H 03/27/19 03:27 Consult Discharge Plan - Plan Referrals: Alena Britt CNP [Primary Care Provider] - (2) Falls Qualifiers: Encounter type: subsequent encounter Qualified Code(s): W19.XXXD - Unspecified fall, subsequent encounter (4) Hypertension Qualifiers: Hypertension type: essential hypertension Qualified Code(s): I10 - Essential (primary) hypertension (5) Diabetes Qualifiers: Diabetes mellitus type: type 2 Diabetes mellitus group home insulin use: without group home use Diabetes mellitus complication status: without complication Qualified Code(s): E11.9 - Type 2 diabetes mellitus without complications (6) Hyperlipidemia Qualifiers: Hyperlipidemia type: unspecified Qualified Code(s): E78.5 - Hyperlipidemia, u nspecified
[2019-03-31] MEDS: Melatonin 3 MG TABLET PO SCH (19:42)
[2019-03-31] MEDS: traMADol 50 MG TABLET PO PRN (23:44)
[2019-04-01] MEDS: Acyclovir 200 MG CAPSULE PO SCH (08:51)
[2019-04-01] MEDS: BUSPIRONE HCL 10 MG TABLET PO SCH (08:52)
[2019-04-01] MEDS: Spironolactone 25 MG TABLET PO SCH (08:52)
[2019-04-01] MEDS: Apixaban 5 MG TABLET PO SCH (08:52)
[2019-04-01] MEDS: predniSONE 20 MG TABLET PO SCH (08:52)
[2019-04-01] MEDS: Insulin LISPRO 300 UNITS/3 ML VIAL SQ SCH ×3 (08:53→17:02)
[2019-04-01] MEDS: (Liraglutide [Victoza 2-Pak] 1.2 MG) SQ SCH (08:53)
--- NOTE | 2019-04-01 10:30 | Discharge Summary ---
- NOTES TO OUTPATIENT PROVIDER Notes to Outpatient Provider: f/u with PCP in one week. f/u with Urology in 1-2 weeks. Please continue Wahl catheter until you see Urologist in their office. Date of Encounter: 04/01/19 Time of Encounter: 09:45 - Discharge Diagnosis (1) Back pain Priority: Primary Status: Acute Qualifiers: Back pain location: low back pain Chronicity: unspecified Back pain laterality: unspecified Sciatica laterality: sciatica laterality unspecified Qualified Code(s): M54.40 - Lumbago with sciatica, unspecified side (2) Falls Priority: Primary Status: Acute Qualifiers: Encounter type: subsequent encounter Qualified Code(s): W19.XXXD - Unspecified fall, subsequent encounter (3) Renal mass Priority: Secondary Status: Acute (4) Hypertension Priority: Secondary Status: Chronic Qualifiers: Hypertension type: essential hypertension Qualified Code(s): I10 - Essential (primary) hypertension (5) Diabetes Priority: Secondary Status: Chronic Qualifiers: Diabetes mellitus type: type 2 Diabetes mellitus buttermaker continuous churn insulin use: without buttermaker continuous churn use Diabetes mellitus complication status: without complication Qualified Code(s): E11.9 - Type 2 diabetes mellitus without complications (6) Voiding dysfunction Priority: Secondary Status: Acute (7) Hyperlipidemia Priority: Secondary Status: Chronic Qualifiers: Hyperlipidemia type: unspecified Qualified Code(s): E78.5 - Hyperlipidemia, unspecified (8) History of deep vein thrombosis (DVT) of lower extremity Priority: Secondary Status: Chronic Hospital course: Ms. Ayoub is a 63-year-old female with a history of MS, diabetes, hypertension, on Xarelto for history of Left lower extremity DVT in 1982 Pulmonary embolism in February 2018 who presented for evaluation of generalized weakness and recurrent falls during the last 24 hrs due to her legs giving out on her. The patient is complaining of low back pain as well as neck pain. Imaging studies revealed no significant abnormalities, The patient was admitted for further evaluation for possible MS flare up. Her Brain MRI did not show any acute intra cranial abnormality. Her cervical and lumbar spine MRI did not show any abnormalities other than degenerative changes. Patient was evaluated by a neurologist. She does not have any MS flare up now, however her severe physical deconditioning/2nd falls and back pain could be due to severe arthritis. So started her on short course of steroid therapy. Patient back pain improved now. Patient was evaluated by PT/OT who recommend short-term physical therapy at [facility]. She had Lumbar spine MRI showed possible right kidney mass and thickening of bladder. Her Abdomen/pelvis CT showed 6 cm complicated right renal cyst. There is also a 3 x 2 cm non dependent mural component that may represent soft tissue or blood clot. Consulted Urology who recommend MRI of Abd. Her Abd MRI showed 6 cm right renal cyst with findings of internal blood products. No solid components or suspicious features are otherwise appreciated. This is a benign finding. Urology recommend out pt f/u for possible cystoscopy. She does have urinary retention so placed her on Wahl catheter and recommend to continue it until she follows with urologist as outpatient. Will d/c her to [facility] in stable condition today. - Time Spent with Patient Total time spent providing and/or coordinating discharge services: - Discharge Medications Prescriptions: Continued Sertraline [Zoloft] 200 mg PO DAILY Acyclovir [Zovirax] 400 mg PO BID Docusate Sodium [Dok] 100 mg PO BID PRN PRN Reason: Constipation Buspirone HCl [Buspar] 20 mg PO BID Omeprazole [PriLOSEC] 40 mg PO DAILY Simvastatin [Zocor] 40 mg PO HS Apixaban [Eliquis] 5 mg PO BID Spironolactone [Aldactone] 25 mg PO QAM Atenolol [Tenormin] 25 mg PO DAILY Liraglutide [Victoza 2-Primo] 1.2 mg SQ DAILY Lisinopril [Zestril] 5 mg PO DAILY Melatonin 10 mg PO HS Metformin HCl [Glucophage] 1,000 mg PO BIDWM Timolol Maleate 1 drop BOTH EYES DAILY Tizanidine HCl 2 mg PO TID PRN PRN Reason: Muscle Spasm Trospium Chloride 20 mg PO BID Home Medications: Acyclovir [Zovirax] 400 mg PO BID 02/21/18 [History] Buspirone HCl [Buspar] 20 mg PO BID 02/21/18 [History] Docusate Sodium [Dok] 100 mg PO BID PRN 02/21/18 [History] Omeprazole [PriLOSEC] 40 mg PO DAILY 02/21/18 [History] Sertraline [Zoloft] 200 mg PO DAILY 02/21/18 [History] Simvastatin [Zocor] 40 mg PO HS 02/21/18 [History] Apixaban [Eliquis] 5 mg PO BID 08/28/18 [History] Atenolol [Tenormin] 25 mg PO DAILY 02/01/19 [History] Spironolactone [Aldactone] 25 mg PO QAM 02/01/19 [History] Liraglutide [Victoza 2-Primo] 1.2 mg SQ DAILY 03/26/19 [History] Lisinopril [Zestril] 5 mg PO DAILY 03/26/19 [History] Melatonin 10 mg PO HS 03/26/19 [History] Metformin HCl [Glucophage] 1,000 mg PO BIDWM 03/26/19 [History] Timolol Maleate 1 drop BOTH EYES DAILY 03/26/19 [History] Tizanidine HCl 2 mg PO TID PRN 03/26/19 [History] Trospium Chloride 20 mg PO BID 03/26/19 [History] Allergies/Adverse Reactions: Allergy/AdvReac Type Severity Reaction Status Date / Time bacitracin Allergy See Verified 03/26/19 14:28 [From Neosporin Comments ([id number])] Neomycin Allergy See Verified 03/26/19 14:28 [From Neosporin Comments ([id number])] polymyxin B Allergy See Verified 03/26/19 14:28 [From Neosporin Comments ([id number])] bandaid Allergy Rash Uncoded 08/28/18 10:07 Date of admission: 03/29/19 13:50 Primary care physician: Alena Britt CNP Consults: 03/26/19 10:32 Consult to Certified Dietary Manager (W&C) [CONS] Stat Reason For Exam: Reason for SW Consult: recurrent falls 03/26/19 15:29 Consult to Occupational Therapy [CONS] Routine Comment: Evaluate, develop and implement POC Reason for Consult: falls Does patient have active BEDREST order?: No Is patient medically & hemodynamically stable?: Yes Patient assessed for mobility or mobilized this visit?: Yes Consult to Physical Therapy [CONS] Routine Comment: Evaluate, develop and implement POC Reason for Consult: falls Does patient have active BEDREST order?: No Is patient medically & hemodynamically stable?: Yes Patient assessed for mobility or mobilized this visit?: Yes 03/26/19 16:38 Consult to Certified Dietary Manager [CONS] Routine Reason for SW Consult: placement 03/26/19 17:15 Consult to Physician [CONS] Routine Consulting Provider: Hardeep Stephenson I Reason for Consult: frequent falls Time Notified: 17:15 Call Completed: Yes 03/29/19 13:16 Consult to Urology [CONS] Routine Consulting Provider: Urology Maureen Reason for Consult: Rt renal mass Time Notified: 13:17 Call Completed: Yes - Constitutional Vitals: Temp Pulse Resp BP Pulse Ox 98.2 F 59 15 120/78 93 04/01/19 07:40 04/01/19 07:40 04/01/19 07:40 04/01/19 07:40 04/01/19 07:40 General appearance: Present: cooperative, A&O X 3, no acute distress, answers questions appropriately Exam: Gen: Alert, awake, Oriented to time,place and person Chest: Diminished breath sounds B/L, No wheezing, No crackles, No rales Heart: S1S2+ RRR No murmurs Abd: Soft, NT, BS +, No organomegaly Ext: trace edema, pulses are palpable, No calf tenderness Neuro : b/l LE weakness..Strength 3/5 in LE. 4/5 in UEs Skin: No rash. - Patient Status Disposition: Transfer SNF Condition: Good Overall status at discharge: patient is back to baseline - Discharge Instructions Follow Up With: Alena Britt CNP [Primary Care Provider] - (Appointment has been requested.) Vamsi Hayward [Partnered Physician] - - Diet and Activity Activity: increase activity as tolerated Diet: low salt diet
--- NOTE | 2019-04-01 10:40 | Physician Discharge Referral ---
ExtendedCare Referral Info Transfer To: ECF Provider in Charge after Transfer: PCP Institutional Level of Care: Skilled - Diagnosis (1) Back pain Status: Acute (2) Falls Status: Acute (3) Renal mass Status: Acute (4) Hypertension Status: Chronic (5) Diabetes Status: Chronic (6) Voiding dysfunction Status: Acute (7) Hyperlipidemia Status: Chronic (8) History of deep vein thrombosis (DVT) of lower extremity Status: Chronic - Transfer Medications Home Medications: Acyclovir [Zovirax] 400 mg PO BID 02/21/18 [History] Buspirone HCl [Buspar] 20 mg PO BID 02/21/18 [History] Docusate Sodium [Dok] 100 mg PO BID PRN 02/21/18 [History] Omeprazole [PriLOSEC] 40 mg PO DAILY 02/21/18 [History] Sertraline [Zoloft] 200 mg PO DAILY 02/21/18 [History] Simvastatin [Zocor] 40 mg PO HS 02/21/18 [History] Apixaban [Eliquis] 5 mg PO BID 08/28/18 [History] Atenolol [Tenormin] 25 mg PO DAILY 02/01/19 [History] Spironolactone [Aldactone] 25 mg PO QAM 02/01/19 [History] Liraglutide [Victoza 2-Primo] 1.2 mg SQ DAILY 03/26/19 [History] Lisinopril [Zestril] 5 mg PO DAILY 03/26/19 [History] Melatonin 10 mg PO HS 03/26/19 [History] Metformin HCl [Glucophage] 1,000 mg PO BIDWM 03/26/19 [History] Timolol Maleate 1 drop BOTH EYES DAILY 03/26/19 [History] Tizanidine HCl 2 mg PO TID PRN 03/26/19 [History] Trospium Chloride 20 mg PO BID 03/26/19 [History] Allergies/Adverse Reactions: Allergy/AdvReac Type Severity Reaction Status Date / Time bacitracin Allergy See Verified 03/26/19 14:28 [From Neosporin Comments ([id number])] Neomycin Allergy See Verified 03/26/19 14:28 [From Neosporin Comments ([id number])] polymyxin B Allergy See Verified 03/26/19 14:28 [From Neosporin Comments ([id number])] bandaid Allergy Rash Uncoded 08/28/18 10:07 - Respiratory Orders Smoking Cessation: Smoking cessation has been advised. For more information, call the [place] Tobacco Quit Line at 0-576-JXSB-NOW. CERTIFICATION: I certify that the transfer of the above named patient to an Extended Care Facility is necessary for the continuing treatment of the diagnosis listed. The above information is true and accurate reflection of patient's current condition. Confidential - Redisclosure prohibited without a patient's written consent.
[2019-04-01] MEDS: Artificial Tears SOLN 15 ML BOTTLE BOTH EYES SCH ×3 (10:51→17:01)
[2019-04-01] MEDS: traMADol 50 MG TABLET PO PRN ×2 (10:51→17:44)
[2019-04-01 11:04] VITALS: BP 128/83
== END 2019-04-01 17:57 | DRG 552 ==
LOC: 3BNU 10:26 → EMEROOARM 10:26 → SUATTDRO 12:42 → 3BNU 14:15
PROVIDERS: ADMIT Internal Medicine Nephrology; ATTEND Family Medicine